=== PATIENT | female | born 1990 ===

== ENCOUNTER 2017-04-29 18:54 | Observation (INO) | payer MEDICAID, OTHER ==
[2017-04-29 18:54] VITALS: BMI 25.7
[2017-04-29] MEDS ORDERED: Sodium Chloride 0.9% 1,000 ML IV ONE (20:16)
[2017-04-29] MEDS ORDERED: Fosphenytoin 1,000 MG in Sodium Chloride 0.9% 50 ML IV STA (20:17)
[2017-04-29 21:01] LABS: BASO % 0.2 % (0.0-2.0); EOS # 0.1 K/uL (0.0-0.7); EOS % 0.4 % (0.0-4.0); HEMATOCRIT 37.8 % (34.0-47.0); LYMPH # 2.3 K/uL (1.0-4.3); LYMPH % 16.8 % (20.0-40.0); MEAN CORPUSCULAR HEMOGLOBIN 21.7 pg (27.0-31.0); MEAN CORPUSCULAR HGB CONC 31.1 g/dL (33.0-37.0); MEAN PLATELET VOLUME 8.3 fL (7.2-11.7); MONO # 0.9 K/uL (0.0-0.8); MONO % 6.8 % (0.0-10.0); RED CELL DISTRIBUTION WIDTH 19.7 % (11.5-14.5)
[2017-04-29 21:02] LABS: WHITE BLOOD COUNT 13.9 K/uL (4.8-10.8)
[2017-04-29 21:03] LABS: MEAN CELL VOLUME 69.8 fL (81.0-99.0)
[2017-04-29 21:05] LABS: RBC URINE 6 /hpf (0-3); URINE BACTERIA OCC (<OCC); URINE BILIRUBIN NEGATIVE (NEGATIVE); URINE COLOR Yellow (YELLOW); URINE GLUCOSE (UA) NORMAL (Normal); URINE KETONE TRACE mg/dL (NEGATIVE); URINE PROTEIN NEGATIVE (NEGATIVE); URINE UROBILINOGEN NORMAL mg/dL (0.2-1.0); WBC URINE 10 /hpf (0-5)
[2017-04-29 21:06] LABS: URINE BLOOD 1+ (NEGATIVE); URINE LEUKOCYTE ESTERASE 1+ Leu/uL (Negative)
[2017-04-29 21:09] LABS: CHLORIDE 103 mmol/L (98-107); SODIUM 137 mmol/L (132-148)
[2017-04-29 21:10] LABS: POTASSIUM 4.3 mmol/L (3.6-5.2)
--- NOTE | 2017-04-29 21:10 | C.PDOC ---
Time Seen by Provider: 04/29/17 20:03 Chief Complaint (Nursing): Seizure Past Medical History Vital Signs: Last Vital Signs Temp 98.6 F 04/29/17 19:40 Pulse 91 H 04/29/17 19:40 Resp 20 04/29/17 19:40 BP 101/67 04/29/17 19:40 Pulse Ox 99 04/29/17 19:40 - Medical History PMH: Seizures - [facility] Procedures APPLICATION OF SPLINT (02/11/15) Family History: States: Unknown Family Hx (no pertinent family history) - Social History Hx Tobacco Use: Yes Hx Alcohol Use: Yes Hx Substance Use: Yes - Immunization History Hx Tetanus Toxoid Vaccination: No Hx Influenza Vaccination: No Hx Pneumococcal Vaccination: No ED Course And Treatment - Laboratory Results Result Diagrams: 04/29/17 20:56 O2 Sat by Pulse Oximetry: 99
--- NOTE | 2017-04-29 21:11 | C.PDOC ---
History Of Present Illness A 26 y/o female with a Hx of 1-2 seizure/year, presents to the ER c/o having 3 seizure today one yesterday. Seizures were witnessed by boyfriend. Pt notes not having any anti-seizure medications. Pt was evaluated by neurologist 2 years ago with a negative workup. Pt reports smoking marijuana extensively and suspects it is because "she has not been smoking for a while". Pt notes mild contusions but denies fever, chills, nausea, vomiting, or any other complaints. Time Seen by Provider: 04/29/17 20:03 Chief Complaint (Nursing): Seizure History Per: Patient, Other (Boyfriend) History/Exam Limitations: no limitations Number Of Seizures: Multiple (3 today and 1 yesterday) Length Of Seizures (Duration): Unknown Quality Of Seizure: Generalized Associated Symptoms: Other (Mild contusions) Severity: Mild Recent travel outside of the [place]: No Additional History Per: Patient Past Medical History Reviewed: Historical Data, Nursing Documentation, Vital Signs Vital Signs: Last Vital Signs Temp 98.6 F 04/29/17 19:40 Pulse 91 H 04/29/17 19:40 Resp 20 04/29/17 19:40 BP 101/67 04/29/17 19:40 Pulse Ox 99 04/29/17 23:01 - Medical History PMH: Seizures - [facility] Procedures APPLICATION OF SPLINT (02/11/15) Family History: States: Unknown Family Hx (no pertinent family history) - Social History Hx Tobacco Use: Yes Hx Alcohol Use: Yes Hx Substance Use: Yes - Immunization History Hx Tetanus Toxoid Vaccination: No Hx Influenza Vaccination: No Hx Pneumococcal Vaccination: No Review Of Systems Except As Marked, All Systems Reviewed And Found Negative. Constitutional: Negative for: Fever, Chills Gastrointestinal: Negative for: Nausea, Vomiting Skin: Positive for: Bruising (Mild) Neurological: Positive for: Seizures (3 today, 1 yesterday) Physical Exam - Physical Exam Appears: Non-toxic, No Acute Distress, Other (Obese) Skin: Warm, Dry Head: Atraumatic, Normacephalic Eye(s): bilateral: Normal Inspection, PERRL, EOMI Chest: Symmetrical Cardiovascular: Rhythm Regular, No Murmur Respiratory: Normal Breath Sounds, No Accessory Muscle Use, No Rales, No Rhonchi , No Wheezing Gastrointestinal/Abdominal: Soft, No Tenderness Neurological/Psych: Oriented x3, Normal Speech, Normal Cognition, Normal Cranial Nerves, Normal Motor, Normal Sensation, Other (No focal deficit) Gait: Steady ED Course And Treatment - Laboratory Results Result Diagrams: 04/29/17 20:56 04/29/17 20:56 Lab Interpretation: Abnormal (+ mild leukocytosis, tox + THC) ECG: Interpreted By Me ECG Rhythm: Sinus Rhythm ECG Interpretation: Normal Rate From EC O2 Sat by Pulse Oximetry: 99 (RA) Pulse Ox Interpretation: Normal - Radiology CXR: Interpreted by Me CXR Interpretation: Yes: No Acute Disease - CT Scan/US CT Head w/o contrast Other Rad Studies (CT/US): Interpreted By Me, Read By Radiologist CT/US Interpretation: EXAM: CT Head Without Intravenous Contrast. CLINICAL HISTORY: 26 years old, female; Signs and symptoms; Other: Seizure; Additional info: Recurrent seizure. TECHNIQUE: Axial computed tomography images of the head/brain without intravenous contrast. This CT exam. was performed using one or more of the following dose reduction techniques: automated exposure. control , adjustment of the mA and/or kV according to patient size, and/or use of iterative. reconstruction technique. COMPARISON: No relevant prior studies available. FINDINGS: Brain: No significant white matter disease. No hemorrhage. No edema. Ventricles: Unremarkable. No ventriculomegaly. Bones/ joints: Unremarkable. No acute fracture. Soft tissues: Unremarkable. Sinuses: Unremarkable as visualized. No acute sinusitis. Mastoid air cells: Minimal fluid within the right mastoid air cells. IMPRESSION: No acute intracranial findings. Mild right mastoid disease. Clinical correlation and followup is recommended as clinically warranted Progress Note: ativan, cerebyx, IVF Reevaluation Time: 22:00 Reassessment Condition: Improved - Physician Consult Information Outcome Of Conversation: 2200: d/w Hospitalist- Dr. Clemens-joan to tele obs Medical Decision Making Medical Decision Making: Impression: 26 y/o female c/o 3 seizures today and 1 yesterday Plans: CT Head, EKG, Blood labs, CXR, Ativan, IV fluids exacerbation of baseline mild seizure disorder of 1-2 szr/yr ? exacerbated by reduction of cannabis abuse. Disposition Doctor Will See Patient In The: Hospital Counseled Patient/Family Regarding: Studies Performed, Diagnosis - Disposition Disposition: HOSPITALIZED Disposition Time: 22:00 Condition: GOOD - Clinical Impression Clinical Impression: Seizure disorder - Scribe Statement The provider has reviewed the documentation as recorded by the Scribe Lulu underwood All medical record entries made by the Scribe were at my direction and personally dictated by me. I have reviewed the chart and agree that the record accurately reflects my personal performance of the history, physical exam, medical decision making, and the department course for this patient. I have also personally directed, reviewed, and agree with the discharge instructions and disposition.
[2017-04-29 21:12] LABS: ALB/GLOB RATIO 1.4 (1.0-2.1); ALKALINE PHOSPHATASE 71 U/L (38-126); ALT/SGPT 27 U/L (9-52); AST/SGOT 24 U/L (14-36); BILIRUBIN,TOTAL 0.7 mg/dL (0.2-1.3); BLOOD UREA NITROGEN 11 mg/dL (7-17); CALCIUM 9.1 mg/dl (8.6-10.4); CARBON DIOXIDE 23 mmol/L (22-30); GFR AFRICAN-AMERICAN > 60; GLUCOSE,RANDOM 82 mg/dL (65-105); TOTAL PROTEIN 7.5 g/dL (6.3-8.3)
[2017-04-29 21:13] LABS: ALCOHOL SERUM < 10 mg/dl (0-10)
--- NOTE | 2017-04-30 00:03 | CP.PCM.HP ---
<Grant Munson - Last Filed: 04/30/17 06:03> History of Present Illness - History of Present Illness History of Present Illness: CC: Seizures 26 F with PMH of seizures (1-2 per year) presents to [facility] ED with complaint of multiple seizures. Seizures were witnessed by boyfriend. Boyfriend was besides and provided most of the history. Patient had 1 seizure yesterday in the late morning/early aternoon. Patient was standing in door way and began to mumble. Her boyfriend got up and laid her on the ground. He described it as tonic-clonic seizure with urinary incontinence and post ictal state. Earlier today, patient had 3 seizures with similar presentation within a few hours. The last one occurred around 530 pm. Patient has a bruise on lip and LLE but denies tongue or mouth lesions. Patient states the she has had seizures in the past. Her first one was at age 4 then did not hav any until age 21. Since age 21, patient reports having 1-2 seizures per year. Patient denies ever taking any anti-seizure medications. She was evaluated by neurologist 2 years ago with a negative workup. She also reports smoking marijuana daily since age 18. Patient suspects seizures occur because "she has not been smoking for a while". Patient did not smoke marijuana for about a day and a half. Denies fever/chills, cp, sob , abd pain, nausea/vomiting, diarrhea, constipation, or any other complaints. PMH: History of seizures Meds: Denies Allergy: NKDA PSH: Denies Hosp: Denies FH: Denies Social: lives with boyfriend, smokes 2 cigarettes daily, smokes 1/8 of an oz of marijuana per day, quit drinking ETOH 3 years ago - use to drink a fifth of vodka per day Present on Admission - Present on Admission Any Indicators Present on Admission: No History of DVT/PE: No History of Uncontrolled Diabetes: No Urinary Catheter: No Decubitus Ulcer Present: No Review of Systems - Constitutional Constitutional: Headache, Weakness. absent: Chills, Fever - EENT Eyes: Photophobia. absent: Blind Spots, Blurred Vision, Loss of Peripheral Vision, Spots in Vision Ears: absent: Ear Discharge, Dizziness Nose/Mouth/Throat: absent: Nasal Congestion, Nasal Discharge, Sore Throat, Neck Mass - Breasts Breasts: absent: Mass, Pain, Swelling - Cardiovascular Cardiovascular: absent: Chest Pain, Chest Pain at Rest, Chest Pain with Activity , Irregular Heart Rhythm, Palpitations - Respiratory Respiratory: absent: Cough, Dyspnea, Hemoptysis, Dyspnea on Exertion, Wheezing - Gastrointestinal Gastrointestinal: absent: Abdominal Pain, Constipation, Diarrhea, Fecal Incontinence, Nausea, Vomiting - Genitourinary Genitourinary: Urinary Incontinence. absent: Change in Urinary Stream, Difficulty Urinating, Dysuria, Urinary Frequency, Urinary Hesitance, Urinary Urgency - Musculoskeletal Musculoskeletal: Arthralgias. absent: Numbness, Stiffness, Tingling - Integumentary Integumentary: New Lesions, Rash, Unusual Bruising. absent: Changing Lesions, Skin Pain, Skin Ulcer, Sores, Wounds - Neurological Neurological: Confusion (post ictal state), Convulsions, Headaches, Memory Loss , Weakness. absent: Dizziness, Syncope, Tingling, Tremor, Vertigo - Psychiatric Psychiatric: absent: Anxiety, Depression, Homicidal Ideation, Suicidal Ideation - Endocrine Endocrine: absent: Fatigue, Palpitations, Polydipsia, Polyphagia, Polyuria - Hematologic/Lymphatic Hematologic: absent: Easy Bleeding, Easy Bruising, Lymphadenopathy Past Patient History - Infectious Disease Hx of Infectious Diseases: None - Past Social History Smoking Status: Light Smoker < 10 Cigarettes Daily - NEUROLOGICAL Hx Seizures: Yes - PSYCHIATRIC Hx Substance Use: Yes - SURGICAL HISTORY Hx Surgeries: No - ANESTHESIA Hx Anesthesia: No Meds Allergies/Adverse Reactions: Allergies Allergy/AdvReac Type Severity Reaction Status Date / Time No Known Allergies Allergy Verified 04/29/17 19:46 Physical Exam - Constitutional Appears: No Acute Distress - Head Exam Head Exam: ATRAUMATIC, NORMOCEPHALIC - Eye Exam Eye Exam: EOMI, Normal appearance Pupil Exam: PERRL - ENT Exam ENT Exam: Mucous Membranes Moist - Neck Exam Neck exam: Positive for: Normal Inspection - Respiratory Exam Respiratory Exam: Clear to Auscultation Bilateral, NORMAL BREATHING PATTERN - Cardiovascular Exam Cardiovascular Exam: Irregular Rhythm (sinus arrythmia), +S1, +S2. absent: Diastolic murmur, Gallop, Rubs, Systolic Murmur Additional comments: regular rate at 78 bpm - GI/Abdominal Exam GI & Abdominal Exam: Normal Bowel Sounds, Soft. absent: Distended, Firm, Guarding, Rebound, Rigid, Tenderness - Extremities Exam Extremities exam: Positive for: normal capillary refill, pedal pulses present. Negative for: calf tenderness, pedal edema - Back Exam Back exam: absent: CVA tenderness (L), CVA tenderness (R) - Neurological Exam Neurological exam: Alert, CN II-XII Intact, Oriented x3 - Psychiatric Exam Psychiatric exam: Normal Affect, Normal Mood - Skin Skin Exam: Dry, Intact, Warm Additional comments: maculopapular rash on left side of face and left supraclavicular region contusion on upper lip and LLE Results - Vital Signs Recent Vital Signs: Last Vital Signs Temp 98.6 F 04/29/17 19:40 Pulse 91 H 04/29/17 19:40 Resp 20 04/29/17 19:40 BP 101/67 04/29/17 19:40 Pulse Ox 99 04/29/17 23:23 - Labs Result Diagrams: 04/29/17 20:56 04/29/17 20:56 Assessment & Plan - Assessment and Plan (Free Text) Plan: 1. Seizures Telemetry CT head CXR EEG Neuro consult, Dr. Marx, help appreciated Regular diet Fosphenytoin 1000 mg was given by ED Aspiration precautions Seizure precautions Fall risk protocol Neurochecks Vitals Q4H 2. Prophylactic Measures Protonix 40 mg PO daily Zofran 4 mg IVP Q6H PRN SCDs <Tony Clemens P - Last Filed: 05/03/17 23:22> Results - Vital Signs Recent Vital Signs: Last Vital Signs Temp 98.6 F 04/30/17 15:36 Pulse 90 04/30/17 15:36 Resp 18 04/30/17 15:36 BP 122/78 04/30/17 15:36 Pulse Ox 96 04/30/17 15:36 - Labs Result Diagrams: 04/30/17 08:37 04/30/17 08:37 Attending/Attestation - Attestation I have personally seen and examined this patient.: Yes I have fully participated in the care of the patient.: Yes I have reviewed all pertinent clinical information: Yes
--- NOTE | 2017-04-30 07:56 | CT ---
PROCEDURE: CT HEAD WITHOUT CONTRAST. HISTORY: recurrent seizure COMPARISON: None available. TECHNIQUE: Axial computed tomography images were obtained through the head/brain without intravenous contrast. Radiation dose: Total exam DLP = 838 mGy-cm. This CT exam was performed using one or more of the following dose reduction techniques: Automated exposure control, adjustment of the mA and/or kV according to patient size, and/or use of iterative reconstruction technique. FINDINGS: HEMORRHAGE: No intracranial hemorrhage. BRAIN: No mass effect or edema. No atrophy or chronic microvascular ischemic changes. VENTRICLES: Unremarkable. No hydrocephalus. CALVARIUM: Unremarkable. PARANASAL SINUSES: Unremarkable as visualized. No significant inflammatory changes. MASTOID AIR CELLS: Small amount of opacification within the right mastoid air cells. OTHER FINDINGS: None. IMPRESSION: No acute intracranial abnormality. Small amount of opacification within the right mastoid air cells. Clinical correlation. If focal neurologic deficit persists, consider MRI. These findings were preliminarily reported at 10:24 p.m. on 04/29/[address] Carli Wallace from [facility].
[2017-04-30 08:49] LABS: BASO % 0.1 % (0.0-2.0); EOS % 0.3 % (0.0-4.0); HEMATOCRIT 35.7 % (34.0-47.0); LYMPH # 2.6 K/uL (1.0-4.3); LYMPH % 29.5 % (20.0-40.0); MEAN CORPUSCULAR HGB CONC 31.4 g/dL (33.0-37.0); MEAN PLATELET VOLUME 8.4 fL (7.2-11.7); MONO # 0.6 K/uL (0.0-0.8); MONO % 6.4 % (0.0-10.0); RED CELL DISTRIBUTION WIDTH 19.3 % (11.5-14.5); WHITE BLOOD COUNT 8.9 K/uL (4.8-10.8)
[2017-04-30 08:53] LABS: INR 1.1
[2017-04-30 08:54] LABS: CHLORIDE 103 mmol/L (98-107); SODIUM 140 mmol/L (132-148)
[2017-04-30 08:55] LABS: POTASSIUM 3.7 mmol/L (3.6-5.2)
[2017-04-30 08:57] LABS: ALB/GLOB RATIO 1.4 (1.0-2.1); ALKALINE PHOSPHATASE 67 U/L (38-126); ALT/SGPT 24 U/L (9-52); AST/SGOT 23 U/L (14-36); BILIRUBIN,TOTAL 0.8 mg/dL (0.2-1.3); BLOOD UREA NITROGEN 8 mg/dL (7-17); CARBON DIOXIDE 26 mmol/L (22-30); GFR AFRICAN-AMERICAN > 60; TOTAL PROTEIN 6.8 g/dL (6.3-8.3)
[2017-04-30 08:58] LABS: CALCIUM 8.5 mg/dl (8.6-10.4); GLUCOSE,RANDOM 88 mg/dL (65-105)
--- NOTE | 2017-04-30 09:12 | RAD ---
PROCEDURE: CHEST RADIOGRAPH, 1 VIEW HISTORY: Detox/Psy COMPARISON: None available. FINDINGS: LUNGS: Clear. PLEURA: No pneumothorax or pleural fluid seen. CARDIOVASCULAR: Normal. OSSEOUS STRUCTURES: No significant abnormalities. VISUALIZED UPPER ABDOMEN: Normal. OTHER FINDINGS: None. IMPRESSION: No active disease.
[2017-04-30] MEDS ORDERED: Pantoprazole 40 mg EC Tab PO SCH (10:00)
[2017-04-30] MEDS ORDERED: Sodium Chloride 0.9% 1,000 ML IV SCH (13:00)
--- NOTE | 2017-04-30 13:05 | CP.PCM.PN ---
<Eloina Rosenthal - Last Filed: 04/30/17 13:20> Subjective - Date & Time of Evaluation Date of Evaluation: 04/30/17 Time of Evaluation: 07:00 - Subjective Subjective: Patient seen and examined at bedside this morning. She has not had another seizure since her admission. She was awake and oriented. She has no current complaints. Denied chest pain, palpitations, headache, changes in vision, N/V, abd pain, weakness or swelling in the extremities. She states that she bit the side of her cheek and has a small braise both from the seizure the had the day prior. Objective - Vital Signs/Intake and Output Vital Signs (last 24 hours): Temp Pulse Resp BP Pulse Ox 98.3 F 85 22 107/56 L 99 04/30/17 08:23 04/30/17 08:23 04/30/17 08:23 04/30/17 08:23 04/30/17 08:23 Intake and Output: 04/30/17 04/30/17 06:59 18:59 Intake Total 120 Balance 120 - Medications Medications: Current Medications Famotidine (Pepcid) 20 mg PO BID LENKA Sodium Chloride (Sodium Chloride 0.9%) 1,000 mls @ 100 mls/hr IV .Q10H LENKA Levetiracetam (Keppra) 500 mg PO BID LENKA Lorazepam (Ativan) 0.5 mg IVP Q6 PRN PRN Reason: Seizure activity Ondansetron HCl (Zofran Inj) 4 mg IVP Q6 PRN PRN Reason: Nausea/Vomiting - Labs Labs: 04/30/17 08:37 04/30/17 08:37 PT 12.5 SECONDS (9.7-12.2) H 04/30/17 08:37 INR 1.1 04/30/17 08:37 APTT 28 SECONDS (21-34) 04/30/17 08:37 - Constitutional Appears: Non-toxic, No Acute Distress - Head Exam Head Exam: ATRAUMATIC, NORMAL INSPECTION - Eye Exam Eye Exam: EOMI, Normal appearance, PERRL Pupil Exam: NORMAL ACCOMODATION - ENT Exam ENT Exam: Mucous Membranes Dry Additional comments: bit mitesh on side of cheek, inside - Respiratory Exam Respiratory Exam: Clear to Ausculation Bilateral, NORMAL BREATHING PATTERN. absent: Accessory Muscle Use, Rales, Rhonchi, Wheezes, Respiratory Distress - Cardiovascular Exam Cardiovascular Exam: REGULAR RHYTHM, +S1, +S2 - GI/Abdominal Exam GI & Abdominal Exam: Soft, Normal Bowel Sounds. absent: Distended, Firm, Guarding, Tenderness - Extremities Exam Extremities Exam: Normal Inspection. absent: Calf Tenderness, Pedal Edema - Back Exam Back Exam: NORMAL INSPECTION. absent: CVA tenderness (L), CVA tenderness (R), paraspinal tenderness - Neurological Exam Neurological Exam: Alert, Awake, CN II-XII Intact, Oriented x3 Neuro motor strength exam: Left Upper Extremity: 5, Right Upper Extremity: 5, Left Lower Extremity: 5, Right Lower Extremity: 5 - Psychiatric Exam Psychiatric exam: Normal Affect, Normal Mood - Skin Skin Exam: Dry, Intact, Normal Color, Warm Assessment and Plan - Assessment and Plan (Free Text) Assessment: Seizures Neuro consult, Dr. Marx, tolu appreciated - f/u recs Start Keppra 500 mg PO BID telemetry monitor Ativan 0.5 mg IVP prn seizure activity CXR - NSR, no acute changes Fosphenytoin 1000 mg was given by ED Aspiration precautions Seizure precautions Fall risk protocol Neurochecks Vitals Q4H Head CT negative so acute bleed or pathology f/u Brain MRI f/u EEG f/u am labs Prophylactic Measures Pepcid 20 mg PO BID Zofran 4 mg IVP Q6H PRN SCDs Patient is ambulating NS at 100 cc/hour Regular diet <Antonio Cook - Last Filed: 06/05/17 12:08> Objective - Vital Signs/Intake and Output Vital Signs (last 24 hours): Temp Pulse Resp BP Pulse Ox 98.6 F 90 18 122/78 96 04/30/17 15:36 04/30/17 15:36 04/30/17 15:36 04/30/17 15:36 04/30/17 15:36 - Labs Labs: 04/30/17 08:37 04/30/17 08:37 PT 12.5 SECONDS (9.7-12.2) H 04/30/17 08:37 INR 1.1 04/30/17 08:37 APTT 28 SECONDS (21-34) 04/30/17 08:37 Attending/Attestation - Attestation I have personally seen and examined this patient.: Yes I have fully participated in the care of the patient.: Yes I have reviewed all pertinent clinical information, including history, physical exam and plan: Yes Notes (Text): Patient Seen and examined with the resident. Agree with the resident's evaluation, assessment and plan. Seizures workup up and meds started cont management per neuro
--- NOTE | 2017-04-30 13:37 | CON ---
DATE: 04/30/2017 REASON FOR CONSULTATION: Seizures. HISTORY OF PRESENT ILLNESS: The patient is a 26-year-old female who was admitted after she had 3 sei zures yesterday. Apparently, about 2 days ago she had an argument with her boyfriend and after that she had 1 seizure lasting briefly. Then yesterday again, patient had 3 seizures which was witnessed by the boyfriend, described as, "she was stiffened and then started shaking arms or legs." She was u nconscious. The patient herself does not remember what happened. She did not have any tongue biting . She had urinary incontinence once. The patient apparently had a seizure when she was 4 years old and after that she did not have any seizures until she was 21 years old. She was evaluated by a neur ologist about 2 years ago and according to her, her workup was negative and she was never started on any medication. At the moment, she feels fine except an achy sensation in the whole body. REVIEW OF SYSTEMS: Denies any headache, dizziness, chest pain, shortness of breath, abdominal pain, constipation, diarrhea, dysuria, pyuria, cough or sputum production. PAST MEDICAL HISTORY: As above. MEDICATIONS AT HOME: None. ALLERGIES: No known drug allergies. SOCIAL HISTORY: She does smoke cigarettes. Does not drink alcohol or use illicit drugs. FAMILY HISTORY: Noncontributory to the case. PHYSICAL EXAMINATION: GENERAL: The patient is a young, pleasant female lying on the bed, in no acute distress. VITAL SIGNS: Her blood pressure is 107/56, heart rate is 85 per minute, breathing at a rate of 16 pe r minute, temperature is 98.3 degrees Fahrenheit. HEENT: Normocephalic, atraumatic. NECK: Supple. There are no carotid bruits. LUNGS: Clear. CARDIOVASCULAR: S1, S2 audible. No murmurs. ABDOMEN: Soft and nontender with bowel sounds present. NEUROLOGIC EXAMINATION: MENTAL STATUS: The patient is awake and alert, oriented to time, place, and person. Speech is fluen t. Naming and repetition is normal. Memory and cognition are intact. CRANIAL NERVES: Pupils are 4 mm bilaterally reactive to light. Visual wilburn are full. Extraocular movements are intact. There is no facial asymmetry. Palate is upgoing bilaterally and tongue is mi dline. MOTOR: Tone is normal. Power is 5/5 bilaterally in all extremities. Reflexes +2 and symmetrical. Plantars downgoing bilaterally. CEREBELLAR: [id number] shows no dysmetria. GAIT: Narrow based. LABORATORIES: Reviewed, shows WBC of 8.9, hemoglobin of 11.2, hematocrit 35.7 and platelets of 341. Sodium is 140, potassium 3.7, chloride , carbon dioxide 26, BUN of 8, creatinine 0.7, glucose o f 88. Urine toxicology is positive for cannabinoids. She had a CT scan of the head done, which was negative for any acute intracranial pathology. IMPRESSION: Recurrent seizures with history of seizure in the past. RECOMMENDATIONS: 1. The patient to have MRI of the brain without contrast. 2. The patient also to have an electroencephalogram. 3. The patient was given phenytoin in the Emergency Room. Currently, the patient is started on Kepp ra 500 mg twice a day, which is to be continued. 4. The patient also to have an electroencephalogram. 5. If patient remains stable and has no further seizures, then she may be discharged with outpatient followup. Thank you for the opportunity to participate in the care of this patient. Tran Marx MD cc: [id number] TT: 04/30/2017 13:37:14 Confirmation # [id number] Dictation # [id number] angela
[2017-04-30 15:39] VITALS: BP 122/78; PULSE 90; RESP 18; TEMP 98.6; O2SAT 96
--- NOTE | 2017-04-30 16:13 | MRI ---
PROCEDURE: MRI BRAIN WITHOUT CONTRAST HISTORY: seizure COMPARISON: Comparison is made to the previous CT dated 04/29/2017 and 07/08/2012 TECHNIQUE: Multiplanar, multisequence MR images of the brain were obtained without intravenous contrast enhancement. FINDINGS: HEMORRHAGE: None DWI: No evidence of an acute or early subacute infarction. BRAIN PARENCHYMA: No mass effect or edema. No atrophy or chronic microvascular ischemic changes. VENTRICLES: Unremarkable. No hydrocephalus. CRANIUM: Unremarkable. ORBITS: Grossly unremarkable. PARANASAL SINUSES/MASTOIDS: Clear VASCULAR SYSTEM: Skull base flow voids intact. OTHER FINDINGS: None. IMPRESSION: Unremarkable non contrast enhanced MRI of the brain.
--- NOTE | 2017-04-30 17:48 | EEG ---
DATE: 04/30/2017 INTRODUCTION: This is a digitally recorded EEG monitoring using standard EEG montages. BACKGROUND RHYTHM: The EEG shows a background activity of 9-10 Hz alpha activity in parietooccipital region. The EEG activity is bilaterally symmetrical and synchronous. There is attenuation of the b ackground activity on eye opening. A small amount of myogenic artifact noticed in this EEG recording . ABNORMAL POTENTIALS: No spikes, sharp waves or focal slowing was seen. PHOTIC STIMULATION AND HYPERVENTILATION: Photic stimulation did not reveal any abnormality. Hyperve ntilation was not performed. IMPRESSION: Normal EEG. No epileptiform activity seen in this EEG recording. Tran Marx MD cc: [id number] TT: 04/30/2017 17:48:17 Confirmation # [id number] Dictation # [id number] sujey
--- NOTE | 2017-05-04 21:21 | CARD ---
APPROVED REPORT EKG Measurement Heart [id number] <Conclusion> Normal sinus rhythm Normal ECG
== END 2017-04-30 17:10 | disposition left against medical advice (07) ==
LOC: C.ER 18:54 → C.6T 22:56
PROVIDERS: ADMIT Internal Medicine; ATTEND Internal Medicine
DX: G40.89 Other seizures (principal); F12.10 Cannabis abuse, uncomplicated; F17.210 Nicotine dependence, cigarettes, uncomplicated
CPT/HCPCS: 36415; 70450; 70551; 71010; 80053; 81001; 82948; 84703; 85025; 85610; 85730; 93005; 95812; 99285; G0378; G0480; J7040; Q2009

== ENCOUNTER 2017-06-04 19:08 | Emergency (ER) | payer OTHER ==
[2017-06-04 19:08] VITALS: BMI 25.7
[2017-06-04 19:30] VITALS: O2SAT 100
--- NOTE | 2017-06-04 19:41 | C.PDOC ---
History Of Present Illness Patient presents to the ER after having a seizure witnessed by her boyfriend. Patient states she missed a couple doses of her seizure medication because she was in AC. Denies fever or chills. Time Seen by Provider: 06/04/17 19:41 Chief Complaint (Nursing): Seizure History Per: Patient History/Exam Limitations: no limitations Recent Seizure Activity Began: Just Before Arrival Number Of Seizures: One Length Of Seizures (Duration): Seconds Quality Of Seizure: Generalized Precipitating Factor(s): Missed Dose Of Anti-seizure Medication Associated Symptoms: Other (None) Severity: Mild Pain Scale Rating Of: 2 Recent travel outside of the [place]: No Past Medical History Reviewed: Historical Data, Nursing Documentation, Vital Signs Vital Signs: Last Vital Signs Temp 97.5 F L 06/04/17 19:30 Pulse 86 06/04/17 19:30 Resp 20 06/04/17 19:30 BP 120/74 06/04/17 19:30 Pulse Ox 100 06/04/17 21:23 - Medical History PMH: No Chronic Diseases, Seizures Denies: Chronic Kidney Disease Surgical History: No Surg Hx - [facility] Procedures APPLICATION OF SPLINT (02/11/15) Family History: States: Unknown Family Hx (no pertinent family history) - Social History Hx Tobacco Use: Yes Hx Alcohol Use: Yes Hx Substance Use: Yes (smokes marijuana) - Immunization History Hx Tetanus Toxoid Vaccination: No Hx Influenza Vaccination: No Hx Pneumococcal Vaccination: No Review Of Systems Constitutional: Negative for: Fever, Chills Neurological: Positive for: Seizures Physical Exam - Physical Exam Appears: Non-toxic, No Acute Distress, Other (Awake, Alert) Skin: Warm, Dry Ear(s): Bilateral: Normal Nose: Tenderness (Mildly), No Septal Hematoma Oral Mucosa: Moist Lips: Laceration (1 1/2 cm to upper lip) Chest: Symmetrical, No Tenderness Cardiovascular: Rhythm Regular, No Murmur Respiratory: No Rales, No Rhonchi, No Wheezing Gastrointestinal/Abdominal: Soft, No Tenderness Neurological/Psych: Oriented x3 ED Course And Treatment O2 Sat by Pulse Oximetry: 100 (Room air) Pulse Ox Interpretation: Normal - CT Scan/US CT Orbits & Facials Other Rad Studies (CT/US): Read By Radiologist, Radiology Report Reviewed CT/US Interpretation: EXAM: CT Orbits Without Intravenous Contrast. CLINICAL HISTORY: 26 years old, female; Injury or trauma and signs and symptoms; Fall; Initial encounter; Laceration;. Nose; Without residual foreign body; Nasal congestion. TECHNIQUE: Axial computed tomography images of the orbits without intravenous contrast. This CT exam was. performed using one or more of the following dose reduction techniques: automated exposure. control, adjustment of the mA and/or kV according to patient size, and/or use of iterative. reconstruction technique. Coronal and sagittal reformatted images were created and reviewed. EXAM DATE/TIME: Exam ordered 06/04/2017 7:45 PM. COMPARISON: CT - HEAD W/O CONTRAST 04/29/2017 9:46:23 PM. FINDINGS: Orbits: Unremarkable. Sinuses: Mucosal thickening is noted in the left the sphenoid sinus. The coastal thickening is noted. in the left maxillary sinus. There is mucosal thickening noted in the left sphenoid sinus. No air-fluid. levels. Mastoid air cells: There is partial soft tissue opacification noted of the right mastoid air cells. Bones/joints: There is a fracture of the left and right nasal bone. There is a leftward deviation of the. left nasal bone. Soft tissues: Unremarkable. IMPRESSION: 1. Fracture of the left and right nasal bones. 2. Left maxillary and ethmoid chronic sinusitis. 2. Right mastoiditis. Progress Note: CT of orbits and facials ordered. Motrin administered. Patient refused blood work because she states she knows the cause of her seizure. Reevaluation Time: 21:30 Reassessment Condition: Improved Laceration - Laceration Repair Right upper lip Wound Length (In cm): 1 1/2 Description Of Wound: Linear Wound Cleansed With: Sterile Saline Anesthesia: Lidocaine 1%, With Epi Wound Examination: Irrigated With Saline Wound Closure: Suture (3) Suture Technique And Material Used: Prolene (6-0) Wound Complexity: Simple Right upper lip(Buccal Aspect) Wound Length (In cm): 2 Description Of Wound: Linear Wound Cleansed With: Sterile Saline Anesthesia: Lidocaine 1%, With Epi Wound Examination: Irrigated With Saline Wound Closure: Suture (3 4-0 absorbable) Wound Complexity: Simple Medical Decision Making Medical Decision Making: Upon provider reevaluation patient is feeling better, is medically stable, and requires no further treatment in the ED at this time. Patient will be discharged home with Rx for keflex . Counseling was provided and all questions were answered regarding diagnosis and need for follow up with [facility]. There is agreement to discharge plan. Return if symptoms persist or worsen. Disposition Counseled Patient/Family Regarding: Studies Performed, Diagnosis - Disposition Referrals: Shaik Moses MD [Staff Provider] - Disposition: HOME/ ROUTINE Disposition Time: 19:41 Condition: FAIR Additional Instructions: Please return if symptoms recur. Please take your seizure medication. Have a wound check in 2 days Prescriptions: Cephalexin [Keflex] 500 mg PO TID #21 capsule Instructions: Epilepsy (DC), Nasal Fracture (ED), Facial Laceration (ED), Care For Your Absorbable Stitches (ED) - Clinical Impression Clinical Impression: Seizure, Fracture of nasal bone, Laceration of lip - Scribe Statement The provider has reviewed the documentation as recorded by the Scribe Diego Couch All medical record entries made by the Scribe were at my direction and personally dictated by me. I have reviewed the chart and agree that the record accurately reflects my personal performance of the history, physical exam, medical decision making, and the department course for this patient. I have also personally directed, reviewed, and agree with the discharge instructions and disposition.
[2017-06-04] MEDS ORDERED: Lidocaine 2% w Epi 1:100,000 Inj IJ ONE (20:38)
--- NOTE | 2017-06-04 21:01 | CT ---
EXAM: CT Orbits Without Intravenous Contrast CLINICAL HISTORY: 26 years old, female; Injury or trauma and signs and symptoms; Fall; Initial encounter; Laceration; Nose; Without residual foreign body; Nasal congestion TECHNIQUE: Axial computed tomography images of the orbits without intravenous contrast. This CT exam was performed using one or more of the following dose reduction techniques: automated exposure control, adjustment of the mA and/or kV according to patient size, and/or use of iterative reconstruction technique. Coronal and sagittal reformatted images were created and reviewed. EXAM DATE/TIME: Exam ordered 06/04/2017 7:45 PM COMPARISON: CT - HEAD W/O CONTRAST 04/29/2017 9:46:23 PM FINDINGS: Orbits: Unremarkable. Sinuses: Mucosal thickening is noted in the left the sphenoid sinus. The coastal thickening is noted in the left maxillary sinus. There is mucosal thickening noted in the left sphenoid sinus. No air-fluid levels. Mastoid air cells: There is partial soft tissue opacification noted of the right mastoid air cells. Bones/joints: There is a fracture of the left and right nasal bone. There is a leftward deviation of the left nasal bone. Soft tissues: Unremarkable. IMPRESSION: 1. Fracture of the left and right nasal bones 2. Left maxillary and ethmoid chronic sinusitis. 2. Right mastoiditis. .
[2017-06-04 21:57] VITALS: BP 110/77; PULSE 89; RESP 18; TEMP 97.8
== END 2017-06-04 21:59 | disposition home or self-care (01) ==
LOC: C.ER 19:08
DX: S01.511A Laceration without foreign body of lip, initial encounter (principal); S02.2XXA Fracture of nasal bones, initial encounter for closed fracture; W18.39XA Other fall on same level, initial encounter; Y92.009 Unspecified place in unspecified non-institutional (private) residence as the place of occurrence of the external cause; G40.909 Epilepsy, unspecified, not intractable, without status epilepticus

== ENCOUNTER 2017-06-07 13:04 | Emergency (ER) | payer OTHER ==
[2017-06-07 13:04] VITALS: BMI 25.7
[2017-06-07 13:11] VITALS: BP 123/88; PULSE 90; RESP 16; TEMP 98.3; O2SAT 98
--- NOTE | 2017-06-07 13:26 | C.PDOC ---
History Of Present Illness 26 year old female presents to the ED seeking evaluation of a wound. Patient states she had suture repair on June 04 and has been compliant with antibiotics. She notes some swelling to the wound area and is currently on a soft diet. Patient denies fever or erythema. Patient is also requesting medicine refills and has not followed up in the clinic. Time Seen by Provider: 06/07/17 13:13 Chief Complaint (Nursing): Wound Check History Per: Patient History/Exam Limitations: no limitations Onset/Duration Of Symptoms: Days Ago (wound repair on June 04 ) Current Symptoms Are (Timing): Better (some swelling, no erythema, wound check) Quality Of Symptoms: Swollen (some swelling ) Recent travel outside of the [place]: No Past Medical History Reviewed: Historical Data, Nursing Documentation, Vital Signs Vital Signs: Last Vital Signs Temp 98.3 F 06/07/17 13:08 Pulse 90 06/07/17 13:08 Resp 16 06/07/17 13:08 BP 123/88 06/07/17 13:08 Pulse Ox 98 06/07/17 14:48 - Medical History PMH: Seizures - [facility] Procedures APPLICATION OF SPLINT (02/11/15) Family History: States: Unknown Family Hx (no pertinent family history) - Social History Hx Tobacco Use: Yes Hx Alcohol Use: No Hx Substance Use: Yes - Immunization History Hx Tetanus Toxoid Vaccination: No Hx Influenza Vaccination: No Hx Pneumococcal Vaccination: No Review Of Systems Constitutional: Negative for: Fever, Chills Cardiovascular: Negative for: Chest Pain Respiratory: Negative for: Shortness of Breath Neurological: Negative for: Headache Physical Exam - Physical Exam Appears: Non-toxic, No Acute Distress Skin: Warm, Dry Head: Other (some facial hematomas with minimal localized tenderness. No erythema, sutures in place. ) Lips: Swelling (upper lip swelling) ED Course And Treatment O2 Sat by Pulse Oximetry: 98 (room air ) Disposition Counseled Patient/Family Regarding: Diagnosis, Need For Followup - Disposition Disposition: HOME/ ROUTINE Disposition Time: 13:24 Condition: GOOD Prescriptions: levETIRAcetam [Keppra] 500 mg PO BID #30 tab Instructions: Acute Wound Care (ED) - Clinical Impression Clinical Impression: Visit for wound check - Scribe Statement The provider has reviewed the documentation as recorded by the Scribe Daylin Cody All medical record entries made by the Scribe were at my direction and personally dictated by me. I have reviewed the chart and agree that the record accurately reflects my personal performance of the history, physical exam, medical decision making, and the department course for this patient. I have also personally directed, reviewed, and agree with the discharge instructions and disposition.
== END 2017-06-07 13:32 | disposition home or self-care (01) ==
LOC: C.ER 13:04
DX: Z48.00 Encounter for change or removal of nonsurgical wound dressing (principal)

== ENCOUNTER 2017-06-13 09:22 | Emergency (ER) | payer OTHER, SELFPAY ==
[2017-06-13 09:28] VITALS: BMI 27.4
[2017-06-13 09:35] VITALS: BP 114/77; PULSE 87; RESP 18; TEMP 98.2; O2SAT 99
--- NOTE | 2017-06-13 09:52 | C.PDOC ---
History Of Present Illness 26 yo female, here of suture removal from lip placed 10 days ago. no fevers, discharge, or other complaints Time Seen by Provider: 06/13/17 09:29 Chief Complaint (Nursing): Suture/Staple Removal Past Medical History Reviewed: Historical Data, Nursing Documentation, Vital Signs Vital Signs: Last Vital Signs Temp 98.2 F 06/13/17 09:34 Pulse 87 06/13/17 09:34 Resp 18 06/13/17 09:34 BP 114/77 06/13/17 09:34 Pulse Ox 99 06/13/17 09:34 - Medical History PMH: Seizures Denies: Chronic Kidney Disease - [facility] Procedures APPLICATION OF SPLINT (02/11/15) Family History: States: Unknown Family Hx (no pertinent family history) - Social History Hx Tobacco Use: Yes Hx Alcohol Use: No Hx Substance Use: Yes - Immunization History Hx Tetanus Toxoid Vaccination: No Hx Influenza Vaccination: No Hx Pneumococcal Vaccination: No Review Of Systems Except As Marked, All Systems Reviewed And Found Negative. ENT: Positive for: Other (laceration to lip) Physical Exam - Physical Exam Appears: Well, No Acute Distress Skin: Normal Color, Warm, Dry Head: Atraumatic, Normacephalic, Laceration (lip lac c/d/i) Eye(s): bilateral: Normal Inspection, PERRL, EOMI Nose: Normal Throat: Normal Neck: Normal Cardiovascular: Rhythm Regular Respiratory: Normal Breath Sounds Gastrointestinal/Abdominal: Normal Exam Back: Normal Inspection Extremity: Normal ROM ED Course And Treatment O2 Sat by Pulse Oximetry: 99 Medical Decision Making Medical Decision Making: sutures removed Disposition - Disposition Disposition: HOME/ ROUTINE Disposition Time: 09:37 Condition: STABLE Additional Instructions: please follow up with your doctor. return to er with worsneing symptoms or concenr. - Clinical Impression Clinical Impression: Removal of suture
== END 2017-06-13 09:40 | disposition home or self-care (01) ==
LOC: C.ER 09:22
DX: Z48.02 Encounter for removal of sutures (principal)

== ENCOUNTER 2017-06-26 14:43 | Emergency (ER) | payer OTHER ==
[2017-06-26 14:43] VITALS: BMI 27.4
[2017-06-26 15:09] VITALS: BP 117/76; PULSE 78; RESP 20; TEMP 98.4; O2SAT 100
--- NOTE | 2017-06-26 15:26 | C.PDOC ---
History Of Present Illness 27 y/o female presents to ED requesting medication refill of Keppra. Pt seen in ED multiple times the same, last visit 06/07/17. Pt pending appointment with PMD in 2 weeks. Pt has no physical complaints at this time. REQUESTING REFILL KEPPRA. MULTIPLE PRIOR ER VISITS FOR SAME, LAST SEEN 06/07/17 FOR SAME EXAM NEG Time Seen by Provider: 06/26/17 15:21 Chief Complaint (Nursing): Med Refill History Per: Patient History/Exam Limitations: no limitations Severity: None Reports Recently: Seen In ED Recent travel outside of the [place]: No Past Medical History Reviewed: Historical Data, Nursing Documentation, Vital Signs Vital Signs: Last Vital Signs Temp 98.4 F 06/26/17 15:06 Pulse 78 06/26/17 15:06 Resp 20 06/26/17 15:06 BP 117/76 06/26/17 15:06 Pulse Ox 100 06/26/17 15:27 - Medical History PMH: Seizures - [facility] Procedures APPLICATION OF SPLINT (02/11/15) Family History: States: Unknown Family Hx (no pertinent family history) - Social History Hx Tobacco Use: Yes Hx Alcohol Use: No Hx Substance Use: Yes (weed) - Immunization History Hx Tetanus Toxoid Vaccination: No Hx Influenza Vaccination: No Hx Pneumococcal Vaccination: No Review Of Systems Except As Marked, All Systems Reviewed And Found Negative. Physical Exam - Physical Exam Appears: Non-toxic, No Acute Distress Skin: Warm, Dry, No Rash Head: Atraumatic, Normacephalic Chest: Symmetrical Cardiovascular: Rhythm Regular Respiratory: Normal Breath Sounds, No Rales, No Rhonchi, No Wheezing Neurological/Psych: Oriented x3, Normal Speech, Normal Cognition ED Course And Treatment O2 Sat by Pulse Oximetry: 100 (room air) Pulse Ox Interpretation: Normal Disposition Counseled Patient/Family Regarding: Diagnosis, Need For Followup, Rx Given - Disposition Referrals: YOUR,PMD [Other] Disposition: HOME/ ROUTINE Disposition Time: 15:26 Condition: GOOD Additional Instructions: FOLLOW UP WITH YOUR PMD FOR FURTHER REFILLS. Prescriptions: levETIRAcetam [Keppra] 500 mg PO BID #10 tab Instructions: Medicine Refill (ED) Forms: [employer] ([place]i) - Clinical Impression Clinical Impression: Medication refill - Scribe Statement The provider has reviewed the documentation as recorded by the Scribe Jermaine Isaak Provider Attestation: All medical record entries made by the Gurinder were at my direction and personally dictated by me. I have reviewed the chart and agree that the record accurately reflects my personal performance of the history, physical exam, medical decision making, and the department course for this patient. I have also personally directed, reviewed, and agree with the discharge instructions and disposition.
== END 2017-06-26 15:37 | disposition home or self-care (01) ==
LOC: C.ER 14:43
DX: Z76.0 Encounter for issue of repeat prescription (principal)

== ENCOUNTER 2017-07-26 06:42 | Emergency (ER) | payer OTHER ==
[2017-07-26 06:43] VITALS: BMI 27.4
[2017-07-26 06:58] VITALS: RESP 20
[2017-07-26] MEDS ORDERED: Sodium Chloride 0.9% 1,000 ML IV ONE (07:30)
[2017-07-26] MEDS ORDERED: Sodium Chloride 0.9% 1,000 ML ONE (07:43)
--- NOTE | 2017-07-26 07:43 | C.PDOC ---
History Of Present Illness 27-year-old female, PMHx includes Seizures, presents to the emergency department , accompanied by boyfriend with complaints of seizure. Patient states she has not taken her medication in three weeks. Boyfriend reports she has had nine seizures over the past three days, last seizure two days ago. Patient denies any numbness/weakness, bladder/bowel incontinence, tongue lacerations, or any other associated symptoms. No other complaints at this time. Time Seen by Provider: 07/26/17 07:14 Chief Complaint (Nursing): Seizure History Per: Patient History/Exam Limitations: no limitations Recent Seizure Activity Began: Days Ago: (2) Number Of Seizures: Multiple Length Of Seizures (Duration): Minutes Past Medical History Reviewed: Historical Data, Nursing Documentation, Vital Signs Vital Signs: Last Vital Signs Temp 99.1 F 07/26/17 08:44 Pulse 90 07/26/17 08:44 Resp 20 07/26/17 08:44 BP 116/70 07/26/17 08:44 Pulse Ox 98 07/26/17 13:44 - Medical History PMH: Seizures - [facility] Procedures APPLICATION OF SPLINT (02/11/15) Family History: States: No Known Family Hx - Social History Hx Tobacco Use: Yes Hx Alcohol Use: No Hx Substance Use: Yes (weed) - Immunization History Hx Tetanus Toxoid Vaccination: No Hx Influenza Vaccination: No Hx Pneumococcal Vaccination: No Review Of Systems Except As Marked, All Systems Reviewed And Found Negative. Constitutional: Negative for: Fever Cardiovascular: Negative for: Chest Pain, Palpitations Respiratory: Negative for: Shortness of Breath Gastrointestinal: Negative for: Nausea, Vomiting Musculoskeletal: Negative for: Back Pain Skin: Negative for: Rash Neurological: Positive for: Seizures. Negative for: Weakness, Numbness Physical Exam - Physical Exam Appears: Non-toxic, No Acute Distress Skin: Warm, Dry, No Rash Head: Atraumatic, Normacephalic Eye(s): bilateral: Normal Inspection, PERRL, EOMI Nose: Normal Oral Mucosa: Moist Lips: Normal Appearing Teeth: Normal Dentition Gingiva: Normal Appearing Throat: Normal, No Erythema Neck: Normal ROM Chest: Symmetrical Cardiovascular: Rhythm Regular, No Murmur Respiratory: Normal Breath Sounds, No Accessory Muscle Use Gastrointestinal/Abdominal: Bowel Sounds, Soft, No Tenderness, No Guarding Back: Normal Inspection, No Vertebral Tenderness, No Paraspinal Tenderness Extremity: Bilateral: Atraumatic, Normal Color And Temperature, Normal ROM Neurological/Psych: Oriented x3, Normal Speech Gait: Steady ED Course And Treatment - Laboratory Results Result Diagrams: 07/26/17 07:40 07/26/17 07:40 Lab Interpretation: No Changes Compared To Prior Results O2 Sat by Pulse Oximetry: 98 (room air) Pulse Ox Interpretation: Normal Medical Decision Making Medical Decision Making: Impression: 27y/o Female PMH seizure d.o complains of seizure activity, non- compliant with medication. When asked about taking her meds, she rolls her eyes and states "I don't feel like taking it everyday". Patient has multiple ER visits for similar symptoms. Plan: * CMP, UDS * CBC * Keppra, IVF * HCG/UA Progress: Labs reviewed, potassium is low, otherwise no significant changes compared to prior visits. UDS positive for cocaine and cannabis. Patient remained well with stable vital signs and no seizure activity during ER evaluation. Discussed with patient results and explain she needs to take her Keppra to treat her seizure disorder, and if unmanaged can have serious injury, disability or even . Rx was given. Patient given instructions for follow up in the clinic. Disposition Counseled Patient/Family Regarding: Studies Performed, Diagnosis, Need For Followup, Rx Given - Disposition Disposition: HOME/ ROUTINE Disposition Time: 08:50 Condition: STABLE Additional Instructions: Follow up with the clinic in 2-5 days for further evaluation. Take medications as prescribed. Follow up with the clinic in 2-5 days for further evaluation. Take medications as prescribed. Prescriptions: levETIRAcetam [Keppra] 500 mg PO BID #28 tab Instructions: Epilepsy (DC) Forms: [email or web address] (Bel[place]an) - POA Present On Arrival: None - Clinical Impression Clinical Impression: Seizure disorder - Scribe Statement The provider has reviewed the documentation as recorded by the Scribe (Jad Watt) All medical record entries made by the Scribe were at my direction and personally dictated by me. I have reviewed the chart and agree that the record accurately reflects my personal performance of the history, physical exam, medical decision making, and the department course for this patient. I have also personally directed, reviewed, and agree with the discharge instructions and disposition.
[2017-07-26 07:46] LABS: BASO % 0.2 % (0.0-2.0); EOS % 0.3 % (0.0-4.0); HEMATOCRIT 35.3 % (34.0-47.0); LYMPH # 1.9 K/uL (1.0-4.3); MEAN CELL VOLUME 72.5 fL (81.0-99.0); MEAN CORPUSCULAR HEMOGLOBIN 23.1 pg (27.0-31.0); MEAN CORPUSCULAR HGB CONC 31.9 g/dL (33.0-37.0); MEAN PLATELET VOLUME 8.2 fL (7.2-11.7); MONO # 0.9 K/uL (0.0-0.8); MONO % 7.5 % (0.0-10.0); RED CELL DISTRIBUTION WIDTH 18.7 % (11.5-14.5); WHITE BLOOD COUNT 12.4 K/uL (4.8-10.8)
[2017-07-26 07:56] LABS: RBC URINE 2 /hpf (0-3); URINE BILIRUBIN NEGATIVE (NEGATIVE); URINE BLOOD NEGATIVE (NEGATIVE); URINE CALCIUM OXALATE CRYSTALS FEW /hpf (<OCC); URINE COLOR Yellow (YELLOW); URINE GLUCOSE (UA) NORMAL (Normal); URINE KETONE NEGATIVE (NEGATIVE); URINE LEUKOCYTE ESTERASE NEG Leu/uL (Negative); URINE PROTEIN NEGATIVE (NEGATIVE); WBC URINE 3 /hpf (0-5)
[2017-07-26 07:59] LABS: CHLORIDE 102 mmol/L (98-107); POTASSIUM 3.1 mmol/L (3.6-5.2); SODIUM 140 mmol/L (132-148)
[2017-07-26 08:01] LABS: BILIRUBIN,TOTAL 0.6 mg/dL (0.2-1.3); CARBON DIOXIDE 25 mmol/L (22-30); GFR AFRICAN-AMERICAN > 60
[2017-07-26 08:02] LABS: ALB/GLOB RATIO 1.3 (1.0-2.1); ALKALINE PHOSPHATASE 65 U/L (38-126); ALT/SGPT 17 U/L (9-52); AST/SGOT 18 U/L (14-36); BLOOD UREA NITROGEN 14 mg/dL (7-17); CALCIUM 9.5 mg/dl (8.6-10.4); GLUCOSE,RANDOM 120 mg/dL (65-105); TOTAL PROTEIN 7.2 g/dL (6.3-8.3)
[2017-07-26] MEDS ORDERED: Potassium Chloride 20 mEq ER Tab PO STA (08:06)
[2017-07-26] MEDS ORDERED: Potassium Chloride 20 mEq/15 ml LIQ UD ONE (08:11)
[2017-07-26 08:44] VITALS: BP 116/70; PULSE 90; TEMP 99.1
[2017-07-26 08:45] VITALS: O2SAT 98
== END 2017-07-26 08:53 | disposition home or self-care (01) ==
LOC: C.ER 06:42
DX: G40.909 Epilepsy, unspecified, not intractable, without status epilepticus (principal)
CPT/HCPCS: 80053; 80324; 80345; 80346; 80349; 80353; 80358; 80361; 81001; 83992; 84703; 85025; 96360; 99285; J7040

== ENCOUNTER 2018-03-03 09:57 | Observation (INO) | payer OTHER ==
[2018-03-03 09:57] VITALS: BMI 27.4
--- NOTE | 2018-03-03 11:04 | C.PDOC ---
History Of Present Illness 27 y/o female, w/PMhx of seizures, presents to the ER for evaluation of seizures which occurred during the past 3 days. Patient states that she fell and hit her face on the floor while she was having a seizure. Patient reports that she had 4 witnessed seizures back to back today. She notes that she was taking Keppra for her seizures. She stopped taking Keppra 6 months ago because she is " busy." Time Seen by Provider: 03/03/18 10:37 Chief Complaint (Nursing): Seizure History Per: Patient History/Exam Limitations: no limitations Number Of Seizures: Multiple Severity: Moderate Past Medical History Reviewed: Historical Data, Nursing Documentation, Vital Signs Vital Signs: Last Vital Signs Temp 98.3 F 03/03/18 16:50 Pulse 99 H 03/03/18 16:50 Resp 20 03/03/18 16:50 BP 105/69 03/03/18 16:50 Pulse Ox 96 03/03/18 16:50 - Medical History PMH: Seizures (NOT TAKING MEDS) Denies: Chronic Kidney Disease Surgical History: No Surg Hx - [facility] Procedures APPLICATION OF SPLINT (02/11/15) Family History: States: No Known Family Hx - Social History Hx Tobacco Use: Yes Hx Alcohol Use: No Hx Substance Use: Yes (LAST USED 4 DAYS AGO) - Immunization History Hx Tetanus Toxoid Vaccination: No Hx Influenza Vaccination: No Hx Pneumococcal Vaccination: No Review Of Systems Except As Marked, All Systems Reviewed And Found Negative. Constitutional: Negative for: Fever, Chills Neurological: Positive for: Seizures Physical Exam - Physical Exam Appears: Non-toxic, No Acute Distress Skin: Warm, Dry, Ecchymosis (ecchymosis to chin) Head: Atraumatic, Normacephalic, Tenderness (tenderness to palpation to mandible ) Eye(s): bilateral: Normal Inspection Nose: Normal Oral Mucosa: Moist Tongue: Bite (bite mitesh on left side of tongue) Neck: Supple Chest: Symmetrical Cardiovascular: Rhythm Regular Respiratory: Normal Breath Sounds, No Rales, No Rhonchi, No Wheezing Extremity: Normal ROM Neurological/Psych: Oriented x3, Normal Speech ED Course And Treatment - Laboratory Results Result Diagrams: 03/03/18 11:25 03/03/18 11:25 ECG: Interpreted By Me, Viewed By Me ECG Rhythm: Sinus Tachycardia Interpretation Of ECG: Sinus Tachycardia with premature supraventricular complexes Rate From EC O2 Sat by Pulse Oximetry: 99 (RA) Pulse Ox Interpretation: Normal - CT Scan/US CT-Head Other Rad Studies (CT/US): Read By Radiologist, Radiology Report Reviewed CT/US Interpretation: PROCEDURE: CT HEAD WITHOUT CONTRAST. HISTORY: seizure/ fall/injury. COMPARISON: None available. TECHNIQUE: Axial computed tomography images were obtained through the head/brain without intravenous contrast. Radiation dose: Total exam DLP = 04/29/2017 mGy-cm. This CT exam was performed using one or more of the following dose reduction techniques: Automated exposure control, adjustment of the mA and/or kV according to patient size, and/or use of iterative reconstruction technique. FINDINGS: HEMORRHAGE: No intracranial hemorrhage. BRAIN: No mass effect or edema. No atrophy or chronic microvascular ischemic changes. VENTRICLES: Unremarkable. No hydrocephalus. CALVARIUM: Unremarkable. PARANASAL SINUSES: Minimal chronic left maxillary sinusitis. MASTOID AIR CELLS: Unremarkable as visualized. No inflammatory changes. OTHER FINDINGS: None. IMPRESSION: No intracranial hemorrhage. Minimal chronic left maxillary sinusitis. Otherwise unremarkable examination. CT-Orbits Other Rad Studies (CT/US): Read By Radiologist, Radiology Report Reviewed CT/US Interpretation: PROCEDURE: CT ORBITS WITHOUT CONTRAST. HISTORY: seizure /fall/injury. COMPARISON: None available. TECHNIQUE: Axial CT images of the orbits were obtained. Coronal and sagittal reformats were generated. Radiation dose: Total exam DLP = 788.64 mGy-cm. This CT exam was performed using one or more of the following dose reduction techniques: Automated exposure control, adjustment of the mA and/or kV according to patient size, and/or use of iterative reconstruction technique. FINDINGS: RIGHT ORBIT: RIGHT BONY ORBIT: Normal. RIGHT INTRAORBITAL STRUCTURES: Globe: Normal. Extraocular muscles: Normal. Post septal space: Normal. Optic Nerve: Normal. Lacrimal Apparatus: Normal. RIGHT PRESEPTAL SOFT TISSUES: Normal. LEFT ORBIT: LEFT BONY ORBIT: Normal. LEFT INTRAORBITAL STRUCTURES: Globe: Normal. Extraocular muscles: Normal. Post septal space: Normal. Optic Nerve: Normal. . Lacrimal Apparatus : Normal. LEFT PRESEPTAL SOFT TISSUES: Normal. OTHER: A nondisplaced nasal tip fracture of indeterminate age. Shotty level 1 and 2 cervix lymph nodes, up to 11 mm in short axis. IMPRESSION: No abnormality of the orbits. Nondisplaced nasal tip fracture of indeterminate age. Shotty cervical lymphadenopathy, likely reactive Otherwise unremarkable. Progress Note: Labs, CXR, CT- Head, CT- Orbits ordered. Patient given Keppra 1000 IV bolus and IV Fluids. Case discussed with Dr.Naresh Wolf. Patient will be admitted to Telemetry for observation under Dr. Wolf's service. Case was d/ w Neurologist button station worker who agreed with the plan and will evaluate patient later today. Disposition - Disposition Disposition: HOSPITALIZED Disposition Time: 14:37 Condition: FAIR - Clinical Impression Clinical Impression: Seizure - PA / RESIDENTIAL BUILDING INSPECTOR / Resident Statement MD/DO has reviewed & agrees with the documentation as recorded. - Scribe Statement The provider has reviewed the documentation as recorded by the Scribe Eleuterio Nava Provider Attestation All medical record entries made by the Scribe were at my direction and personally dictated by me. I have reviewed the chart and agree that the record accurately reflects my personal performance of the history, physical exam, medical decision making, and the department course for this patient. I have also personally directed, reviewed, and agree with the discharge instructions and disposition. Decision To Admit - Pt Status Changed To: Hospital Disposition Of: Observation - . Bed Request Type: Telemetry Admitting Physician: Vinh Wolf Patient Diagnosis: Seizure
[2018-03-03] MEDS ORDERED: levETIRAcetam 500 MG in Sodium Chloride 0.9% 100 ML IVPB STA ×2 (11:07→14:49)
[2018-03-03] MEDS ORDERED: Sodium Chloride 0.9% 1,000 ML IV STA (11:07)
[2018-03-03] MEDS ORDERED: Sodium Chloride 0.9% 1,000 ML ONE (11:28)
[2018-03-03 11:30] LABS: BASO % 0.1 % (0.0-2.0); HEMOGLOBIN 11.9 g/dL (11.0-16.0); LYMPH # 0.9 K/uL (1.0-4.3); LYMPH % 4.7 % (20.0-40.0); MEAN CORPUSCULAR HGB CONC 32.3 g/dL (33.0-37.0); MEAN PLATELET VOLUME 8.6 fL (7.2-11.7); MONO # 0.8 K/uL (0.0-0.8); MONO % 4.3 % (0.0-10.0); NEUT # 16.7 K/uL (1.8-7.0); NEUT % 90.9 % (50.0-75.0); PLATELET COUNT 386 K/uL (130-400); RBC 4.76 Mil/uL (3.80-5.20); RED CELL DISTRIBUTION WIDTH 18.4 % (11.5-14.5); WHITE BLOOD COUNT 18.3 K/uL (4.8-10.8)
[2018-03-03 11:35] LABS: MEAN CELL VOLUME 77.3 fL (81.0-99.0)
[2018-03-03 11:36] LABS: SQUAMOUS EPITHIAL 15 /hpf (0-5); URINE BILIRUBIN NEGATIVE (NEGATIVE); URINE BLOOD NEGATIVE (NEGATIVE); URINE CLARITY Hazy (Clear); URINE COLOR Yellow (YELLOW); URINE GLUCOSE (UA) NORMAL (Normal); URINE LEUKOCYTE ESTERASE 1+ Leu/uL (Negative); URINE PROTEIN 1+ mg/dL (NEGATIVE); URINE UROBILINOGEN NORMAL mg/dL (0.2-1.0)
[2018-03-03 11:38] LABS: HCG,QUALITATIVE URINE NEGATIVE (NEGATIVE)
[2018-03-03 11:48] LABS: ALB/GLOB RATIO 1.3 (1.0-2.1); ALBUMIN 4.1 g/dL (3.5-5.0); ALT/SGPT 11 U/L (9-52); AST/SGOT 40 U/L (14-36); BLOOD UREA NITROGEN 11 mg/dL (7-17); CALCIUM 8.9 mg/dl (8.6-10.4); GFR AFRICAN-AMERICAN > 60; GFR NON-AFRICAN AMERICAN > 60
[2018-03-03 11:56] LABS: ANISOCYTOSIS MODERATE; BANDS 1 % (0-2); LYMPHOCYTE 5 % (20-40); MONOCYTE 2 % (0-10); NEUTROPHIL 92 % (50-75); PLATELET ESTIMATE NORMAL (NORMAL); TOTAL CELLS COUNTED 100
[2018-03-03 11:57] LABS: OVALOCYTES SLIGHT
[2018-03-03 12:07] LABS: BARBITURATES, UR NEGATIVE (NEGATIVE); BENZODIAZEPINES, UR NEGATIVE (NEGATIVE); PHENCYCLIDINE, UR NEGATIVE (NEGATIVE)
[2018-03-03 12:16] LABS: OPIATES, UR POSITIVE (NEGATIVE)
--- NOTE | 2018-03-03 13:25 | CT ---
PROCEDURE: CT HEAD WITHOUT CONTRAST. HISTORY: seizure/fall/injury COMPARISON: None available. TECHNIQUE: Axial computed tomography images were obtained through the head/brain without intravenous contrast. Radiation dose: Total exam DLP = 04/29/2017 mGy-cm. This CT exam was performed using one or more of the following dose reduction techniques: Automated exposure control, adjustment of the mA and/or kV according to patient size, and/or use of iterative reconstruction technique. FINDINGS: HEMORRHAGE: No intracranial hemorrhage. BRAIN: No mass effect or edema. No atrophy or chronic microvascular ischemic changes. VENTRICLES: Unremarkable. No hydrocephalus. CALVARIUM: Unremarkable. PARANASAL SINUSES: Minimal chronic left maxillary sinusitis. MASTOID AIR CELLS: Unremarkable as visualized. No inflammatory changes. OTHER FINDINGS: None. IMPRESSION: No intracranial hemorrhage. Minimal chronic left maxillary sinusitis. Otherwise unremarkable examination.
--- NOTE | 2018-03-03 13:31 | CT ---
PROCEDURE: CT ORBITS WITHOUT CONTRAST. HISTORY: seizure/fall/injury COMPARISON: None available. TECHNIQUE: Axial CT images of the orbits were obtained. Coronal and sagittal reformats were generated. Radiation dose: Total exam DLP = 788.64 mGy-cm. This CT exam was performed using one or more of the following dose reduction techniques: Automated exposure control, adjustment of the mA and/or kV according to patient size, and/or use of iterative reconstruction technique. FINDINGS: RIGHT ORBIT: RIGHT BONY ORBIT: Normal. RIGHT INTRAORBITAL STRUCTURES: Globe: Normal. Extraocular muscles: Normal. Post septal space: Normal. Optic Nerve: Normal. Lacrimal Apparatus: Normal. RIGHT PRESEPTAL SOFT TISSUES: Normal. LEFT ORBIT: LEFT BONY ORBIT: Normal. LEFT INTRAORBITAL STRUCTURES: Globe: Normal. Extraocular muscles: Normal. Post septal space: Normal Optic Nerve: Normal. . Lacrimal Apparatus: Normal. LEFT PRESEPTAL SOFT TISSUES: Normal. OTHER: A nondisplaced nasal tip fracture of indeterminate age. Shotty level 1 and 2 cervix lymph nodes, up to 11 mm in short axis. IMPRESSION: No abnormality of the orbits. Nondisplaced nasal tip fracture of indeterminate age. Shotty cervical lymphadenopathy, likely reactive Otherwise unremarkable.
--- NOTE | 2018-03-03 14:01 | RAD ---
HISTORY: seizure, elevated WBCs COMPARISON: 04/29/2017 TECHNIQUE: Chest PA and lateral FINDINGS: LUNGS: No active pulmonary disease. PLEURA: No significant pleural effusion identified. No pneumothorax apparent. CARDIOVASCULAR: Normal. OSSEOUS STRUCTURES: No significant abnormalities. VISUALIZED UPPER ABDOMEN: Normal. OTHER FINDINGS: None. IMPRESSION: No active disease.
--- NOTE | 2018-03-03 16:04 | CP.PCM.HP ---
History of Present Illness - History of Present Illness History of Present Illness: CC: witnessed seizures 27F with past medical history of multiple seizures came to the ER because she had witnessed seizures by mother. Patient's mother said she had about 4 seizures. Patient's mother states that seizures were witnessed and that patient hasn't had her seizure medications in a really long time because of insurance. Her first one was at age 4 then did not have any until age 21. Since age 21, patient reports having 1-2 seizures per year. Patient states she takes special K and the last day was 5 days ago. Patient states her last use of marijuana was 2 days ago. Patient denies fever, chills, nausea, vomiting, diarrhea. Patient states her lower abdomen is sore, has been coughing a productive cough for two days, has sore throat. Patient's mom Rolanda states that she fell straight forward , hit her chin, had a small cut on lateral tongue and left upper lip cut. Patient states that she was evaluated by neurologist 2 years ago with a negative workup. She also reports smoking marijuana daily since age 18. Patient suspects seizures occur because "she has not been smoking for a while". Patient did not smoke marijuana for about a day and a half. Denies fever/chills, cp, sob, abd pain, nausea/vomiting, diarrhea, constipation, or any other complaints. PMH: History of seizures Meds: Denies Allergy: NKDA PSH: Denies FH: father has htn, patient has half brothers on father's side with no medical issues. mother has no medical issues but smokes as well. Social: lives with mother after fighting with boyfriend and is estranged relationship with father, smokes 10 cigarettes daily, smokes 1/8 of an oz of marijuana per day, quit drinking ETOH 3 years ago - use to drink a fifth of vodka per day. Patient takes special k (Ketamine, intranasally), marijuana PMD: none Present on Admission - Present on Admission Any Indicators Present on Admission: No History of DVT/PE: No History of Uncontrolled Diabetes: No Urinary Catheter: No Decubitus Ulcer Present: No Review of Systems - Constitutional Constitutional: As Per HPI - EENT Eyes: As Per HPI Ears: As Per HPI Nose/Mouth/Throat: As Per HPI - Cardiovascular Cardiovascular: As Per HPI - Respiratory Respiratory: Cough, Excessive Mucous Production. absent: Wheezing, Snoring, Stridor, Pain on Inspiration, Chest Congestion, Change in Mucous Color - Gastrointestinal Gastrointestinal: As Per HPI - Musculoskeletal Musculoskeletal: absent: Abnormal Gait, Back Pain, Limited Range of Motion, Muscle Cramps, Muscle Weakness, Neck Pain, Numbness, Radiating Pain into Limb, Stiffness, Tingling - Neurological Neurological: Convulsions, Weakness - Psychiatric Psychiatric: absent: Change in Appetite, Confusion, Depression, Difficulty Concentrating - Endocrine Endocrine: Fatigue. absent: Change in Body Appearance, Deepening of Voice, Excessive Sweating Past Patient History - Infectious Disease Hx of Infectious Diseases: None - Past Medical History & Family History Past Medical History?: Yes - Past Social History Smoking Status: Heavy Smoker > 10 Cigarettes Daily - CARDIAC Hx Cardiac Disorders: No - PULMONARY Hx Respiratory Disorders: No - NEUROLOGICAL Hx Seizures: Yes (NOT TAKING MEDS) - HEENT Hx HEENT Problems: No - RENAL Hx Chronic Kidney Disease: No - ENDOCRINE/METABOLIC Hx Endocrine Disorders: No - HEMATOLOGICAL/ONCOLOGICAL Hx Blood Disorders: No - INTEGUMENTARY Hx Dermatological Problems: No - MUSCULOSKELETAL/RHEUMATOLOGICAL Hx Falls: No - GASTROINTESTINAL Hx Gastrointestinal Disorders: No - GENITOURINARY/GYNECOLOGICAL Hx Genitourinary Disorders: No - PSYCHIATRIC Hx Substance Use: Yes (LAST USED 4 DAYS AGO) - SURGICAL HISTORY Hx Surgeries: No - ANESTHESIA Hx Anesthesia: No Meds Allergies/Adverse Reactions: Allergies Allergy/AdvReac Type Severity Reaction Status Date / Time No Known Allergies Allergy Verified 03/03/18 10:09 Physical Exam - Constitutional Appears: No Acute Distress - Head Exam Head Exam: absent: ATRAUMATIC, NORMAL INSPECTION Additional comments: patient has a left chin raised bump with echymosis and tenderness to palpation left upper lip laceration healing - Eye Exam Eye Exam: EOMI, Normal appearance Pupil Exam: NORMAL ACCOMODATION, PERRL - ENT Exam ENT Exam: Mucous Membranes Dry, Mucous Membranes Moist, Normal Exam Additional comments: right lateral tongue laceration no active bleeding - Neck Exam Neck exam: Positive for: Full Rom. Negative for: Tenderness - Respiratory Exam Respiratory Exam: Accessory Muscle Use, NORMAL BREATHING PATTERN. absent: Respiratory Distress - Cardiovascular Exam Cardiovascular Exam: REGULAR RHYTHM, +S1, +S2. absent: Bradycardia, Tachycardia - GI/Abdominal Exam GI & Abdominal Exam: Soft. absent: Distended, Guarding, Rebound, Tenderness - Extremities Exam Extremities exam: Positive for: full ROM, normal capillary refill, normal inspection. Negative for: pedal edema - Back Exam Back exam: FULL ROM, NORMAL INSPECTION. absent: paraspinal tenderness - Neurological Exam Neurological exam: CN II-XII Intact, Oriented x3, Reflexes Normal - Psychiatric Exam Psychiatric exam: Normal Affect, Normal Mood - Skin Skin Exam: Dry, Intact, Normal Color, Warm Results - Vital Signs Recent Vital Signs: Last Vital Signs Temp 98.7 F 03/03/18 15:32 Pulse 94 H 03/03/18 15:32 Resp 20 03/03/18 15:32 BP 110/71 03/03/18 15:32 Pulse Ox 99 03/03/18 15:32 - Labs Result Diagrams: 03/03/18 11:25 03/03/18 11:25 Labs: Laboratory Results - last 24 hr 03/03/18 03/03/18 03/03/18 10:23 11:25 11:25 WBC 18.3 H RBC 4.76 Hgb 11.9 Hct 36.8 MCV 77.3 L D MCH 25.0 L MCHC 32.3 L RDW 18.4 H Plt Count 386 MPV 8.6 Neut % (Auto) 90.9 H Lymph % (Auto) 4.[address] % (Auto) 4.3 Eos % (Auto) 0.0 Baso % (Auto) 0.1 Neut # (Auto) 16.7 H Lymph # (Auto) 0.[address] # (Auto) 0.8 Eos # (Auto) 0.0 Baso # (Auto) 0.0 Neutrophils % (Manual) 92 H Band Neutrophils % 1 Lymphocytes % (Manual) 5 L Monocytes % (Manual) 2 Platelet Estimate Normal Anisocytosis (manual) Moderate Ovalocytes Slight Sodium Potassium Chloride Carbon Dioxide Anion Gap BUN Creatinine Est GFR ( Amer) Est GFR (Non-Af Amer) POC Glucose (mg/dL) 97 Random Glucose Calcium Total Bilirubin AST ALT Alkaline Phosphatase Total Creatine Kinase Total Protein Albumin Globulin Albumin/Globulin Ratio Urine Color Yellow Urine Clarity Hazy Urine pH 5.0 Ur Specific [place] 1.019 Urine Protein 1+ H Urine Glucose (UA) Normal Urine Ketones Negative Urine Blood Negative Urine Nitrate Negative Urine Bilirubin Negative Urine Urobilinogen Normal Ur Leukocyte Esterase 1+ H Urine WBC (Auto) 6 H Urine RBC (Auto) 1 Ur Squamous Epith Cells 15 H Urine HCG, Qual Negative Urine Opiates Screen Urine Methadone Screen Ur Barbiturates Screen Ur Phencyclidine Scrn Ur Amphetamines Screen U Benzodiazepines Scrn U Oth Cocaine Metabols U Cannabinoids Screen Alcohol, Quantitative 03/03/18 03/03/18 11:25 11:25 WBC RBC Hgb Hct MCV MCH MCHC RDW Plt Count MPV Neut % (Auto) Lymph % (Auto) [place] % (Auto) Eos % (Auto) Baso % (Auto) Neut # (Auto) Lymph # (Auto) [place] # (Auto) Eos # (Auto) Baso # (Auto) Neutrophils % (Manual) Band Neutrophils % Lymphocytes % (Manual) Monocytes % (Manual) Platelet Estimate Anisocytosis (manual) Ovalocytes Sodium 141 Potassium 4.8 Chloride 103 Carbon Dioxide 18 L Anion Gap 24 H BUN 11 Creatinine 0.7 Est GFR ( Amer) > 60 Est GFR (Non-Af Amer) > 60 POC Glucose (mg/dL) Random Glucose 86 Calcium 8.9 Total Bilirubin 0.3 AST 40 H ALT 11 Alkaline Phosphatase 68 Total Creatine Kinase 66 Total Protein 7.3 Albumin 4.1 Globulin 3.2 Albumin/Globulin Ratio 1.3 Urine Color Urine Clarity Urine pH Ur Specific [place] Urine Protein Urine Glucose (UA) Urine Ketones Urine Blood Urine Nitrate Urine Bilirubin Urine Urobilinogen Ur Leukocyte Esterase Urine WBC (Auto) Urine RBC (Auto) Ur Squamous Epith Cells Urine HCG, Qual Urine Opiates Screen Positive H Urine Methadone Screen Negative Ur Barbiturates Screen Negative Ur Phencyclidine Scrn Negative Ur Amphetamines Screen Negative U Benzodiazepines Scrn Negative U Oth Cocaine Metabols Positive H U Cannabinoids Screen Positive H Alcohol, Quantitative < 10 Assessment & Plan - Assessment and Plan (Free Text) Assessment: 1. Seizure: noncompliance with meds tongue has small laceration on right lateral side. neurology Dr. Boo EEG Keppra 500 mg PO Q12H Seizure precautions 2. Multi-substance abuse Psych Dr. Perez alcohol <10 UDS positive for cocaine and no beta blockers due to cocaine use no narcotic pain medications 3. Productive cough CXR clear 4. Leukocytosis vitals stable at this point. no fevers f/u am labs 5. Abnormal RBC indices likely secondary to iron deficiency f/u AM Iron studies 6. prophylaxis: no ppi dvt score of [address] Vinh Niño Eng DO PGY1 - Date & Time Date: 03/03/18 Time: 16:51
--- NOTE | 2018-03-04 07:08 | CP.PCM.DIS ---
<Renay Mayorga - Last Filed: 03/04/18 15:48> Provider - Provider Date of Admission: 03/03/18 14:35 Attending physician: Vinh Wolf MD Consults: Dr. Boo Time Spent in preparation of Discharge (in minutes): 35 Diagnosis - Discharge Diagnosis (1) Seizure Status: Chronic Comment: no ocurrence during hospital stay (2) Contusion Status: Acute Comment: well healing (3) Laceration of lip Status: Acute Hospital Course - Lab Results Lab Results: Most Recent Lab Values WBC 18.3 K/uL (4.8-10.8) H 03/03/18 11:25 RBC 4.76 Mil/uL (3.80-5.20) 03/03/18 11:25 Hgb 11.9 g/dL (11.0-16.0) 03/03/18 11:25 Hct 36.8 % (34.0-47.0) 03/03/18 11:25 MCV 77.3 fL (81.0-99.0) L D 03/03/18 11:25 MCH 25.0 pg (27.0-31.0) L 03/03/18 11:25 MCHC 32.3 g/dL (33.0-37.0) L 03/03/18 11:25 RDW 18.4 % (11.5-14.5) H 03/03/18 11:25 Plt Count 386 K/uL (130-400) 03/03/18 11:25 MPV 8.6 fL (7.2-11.7) 03/03/18 11:25 Neut % (Auto) 90.9 % (50.0-75.0) H 03/03/18 11:25 Lymph % (Auto) 4.7 % (20.0-40.0) L 03/03/18 11:25 [place] % (Auto) 4.3 % (0.0-10.0) 03/03/18 11:25 Eos % (Auto) 0.0 % (0.0-4.0) 03/03/18 11:25 Baso % (Auto) 0.1 % (0.0-2.0) 03/03/18 11:25 Neut # (Auto) 16.7 K/uL (1.8-7.0) H 03/03/18 11:25 Lymph # (Auto) 0.9 K/uL (1.0-4.3) L 03/03/18 11:25 [place] # (Auto) 0.8 K/uL (0.0-0.8) 03/03/18 11:25 Eos # (Auto) 0.0 K/uL (0.0-0.7) 03/03/18 11:25 Baso # (Auto) 0.0 K/uL (0.0-0.2) 03/03/18 11:25 Neutrophils % (Manual) 92 % (50-75) H 03/03/18 11:25 Band Neutrophils % 1 % (0-2) 03/03/18 11:25 Lymphocytes % (Manual) 5 % (20-40) L 03/03/18 11:25 Monocytes % (Manual) 2 % (0-10) 03/03/18 11:25 Platelet Estimate Normal (NORMAL) 03/03/18 11:25 Anisocytosis (manual) Moderate 03/03/18 11:25 Ovalocytes Slight 03/03/18 11:25 Sodium 141 mmol/L (132-148) 03/03/18 11:25 Potassium 4.8 mmol/L (3.6-5.2) 03/03/18 11:25 Chloride 103 mmol/L (98-107) 03/03/18 11:25 Carbon Dioxide 18 mmol/L (22-30) L 03/03/18 11:25 Anion Gap 24 (10-20) H 03/03/18 11:25 BUN 11 mg/dL (7-17) 03/03/18 11:25 Creatinine 0.7 mg/dL (0.7-1.2) 03/03/18 11:25 Est GFR ( Amer) > 60 03/03/18 11:25 Est GFR (Non-Af Amer) > 60 03/03/18 11:25 POC Glucose (mg/dL) 97 mg/dL (65-110) 03/03/18 10:23 Random Glucose 86 mg/dL (65-105) 03/03/18 11:25 Calcium 8.9 mg/dl (8.6-10.4) 03/03/18 11:25 Total Bilirubin 0.3 mg/dL (0.2-1.3) 03/03/18 11:25 AST 40 U/L (14-36) H 03/03/18 11:25 ALT 11 U/L (9-52) 03/03/18 11:25 Alkaline Phosphatase 68 U/L (38-126) 03/03/18 11:25 Total Creatine Kinase 66 U/L (30-135) 03/03/18 11:25 Total Protein 7.3 g/dL (6.3-8.3) 03/03/18 11:25 Albumin 4.1 g/dL (3.5-5.0) 03/03/18 11:25 Globulin 3.2 gm/dL (2.2-3.9) 03/03/18 11:25 Albumin/Globulin Ratio 1.3 (1.0-2.1) 03/03/18 11:25 Urine Color Yellow (YELLOW) 03/03/18 11:25 Urine Clarity Hazy (Clear) 03/03/18 11:25 Urine pH 5.0 (5.0-8.0) 03/03/18 11:25 Ur Specific [place] 1.019 (1.003-1.030) 03/03/18 11:25 Urine Protein 1+ mg/dL (NEGATIVE) H 03/03/18 11:25 Urine Glucose (UA) Normal mg/dL (Normal) 03/03/18 11:25 Urine Ketones Negative mg/dL (NEGATIVE) 03/03/18 11:25 Urine Blood Negative (NEGATIVE) 03/03/18 11:25 Urine Nitrate Negative (NEGATIVE) 03/03/18 11:25 Urine Bilirubin Negative (NEGATIVE) 03/03/18 11:25 Urine Urobilinogen Normal mg/dL (0.2-1.0) 03/03/18 11:25 Ur Leukocyte Esterase 1+ Didi/uL (Negative) H 03/03/18 11:25 Urine WBC (Auto) 6 /hpf (0-5) H 03/03/18 11:25 Urine RBC (Auto) 1 /hpf (0-3) 03/03/18 11:25 Ur Squamous Epith Cells 15 /hpf (0-5) H 03/03/18 11:25 Urine HCG, Qual Negative (NEGATIVE) 03/03/18 11:25 Urine Opiates Screen Positive (NEGATIVE) H 03/03/18 11:25 Urine Methadone Screen Negative (NEGATIVE) 03/03/18 11:25 Ur Barbiturates Screen Negative (NEGATIVE) 03/03/18 11:25 Ur Phencyclidine Scrn Negative (NEGATIVE) 03/03/18 11:25 Ur Amphetamines Screen Negative (NEGATIVE) 03/03/18 11:25 U Benzodiazepines Scrn Negative (NEGATIVE) 03/03/18 11:25 U Oth Cocaine Metabols Positive (NEGATIVE) H 03/03/18 11:25 U Cannabinoids Screen Positive (NEGATIVE) H 03/03/18 11:25 Alcohol, Quantitative < 10 mg/dl (0-10) 03/03/18 11:25 - Hospital Course Hospital Course: HPI 27F with past medical history of multiple seizures came to the ER because she had witnessed seizures by mother. Patient's mother said she had about 4 seizures. Patient's mother states that seizures were witnessed and that patient hasn't had her seizure medications in a really long time because of insurance. Her first one was at age 4 then did not have any until age 21. Since age 21, patient reports having 1-2 seizures per year. Patient states she takes special K and the last day was 5 days ago. Patient states her last use of marijuana was 2 days ago. Patient denies fever, chills, nausea, vomiting, diarrhea. Patient states her lower abdomen is sore, has been coughing a productive cough for two days, has sore throat. Patient's mom Rolanda states that she fell straight forward , hit her chin, had a small cut on lateral tongue and left upper lip cut. Patient states that she was evaluated by neurologist 2 years ago with a negative workup. She also reports smoking marijuana daily since age 18. Patient suspects seizures occur because "she has not been smoking for a while". Patient did not smoke marijuana for about a day and a half. Denies fever/chills, cp, sob, abd pain, nausea/vomiting, diarrhea, constipation, or any other complaints. Patient last smoked marijuana 4/1 days ago with cocaine laced. Patient states she's sexually active without condom protection or oral contraceptives. Hospital Course During hospital course, EEG was done, CT head and orbit negative for fractures, hematoma in cranial space, no stroke. Dr. Boo was consulted. Patient requested Xanax overnight, was denied due to polysubstance abuse history and lack of clinical indication for xanax usage. Patient had EEG done which was normal. Patient discharged with prescription for Keppra and instructions to take medication every day with breakfast. Patient was discharged with instructions to: 1). You stated that you already have a Primary Care Physician located on [facility] and that you had his information at home. Please schedule an appointment with him to take place in the next 7 days to help coordinate your care. 2). Through your Primary Care Physician's office please follow up the following tests whose results were still pending at the time of your discharge: EEG (to measure your brain waves) HIV Testing 3). Please schedule an appointment with Neurologist Dr. Boo to take place in the next 7 days by calling [phone]. Dr. Boo's office is located at [address] [place] [address] [address] [place] [address]. She will help follow you for your history of Seizures. 4). You can NOT drive a car. 5). Please have the following prescription filled your pharmacy on the way home from the hospital and take as directed: Keppra 1,000 mg, 1 tablet by mouth 1x/day (breakfast), Dispense #30, NO refills 6). Please follow up with [facility] located on [address] in [place], [place]. They have meetings at 9:30 AM to 11:00 AM. Please go as this will likely save your life. 7). Failure to follow the above instructions will have serious consequence to your health. 8). Please take care of yourself and be well. Vinh Wolf D.O. This is a brief summary of patient's stay here at the hospital. For further information, please see EMR Discharge Exam - Head Exam Head Exam: absent: ATRAUMATIC (patient has ecchymosis on bottom of chin, lip laceration that's healing), NORMAL INSPECTION - Eye Exam Eye Exam: EOMI, Normal appearance Pupil Exam: NORMAL ACCOMODATION - Cardiovascular Exam Cardiovascular Exam: REGULAR RHYTHM, +S1, +S2 - GI/Abdominal Exam GI & Abdominal Exam: Soft. absent: Tenderness - Extremities Exam Extremities exam: full ROM - Back Exam Back exam: FULL ROM, NORMAL INSPECTION - Neurological Exam Neurological exam: Alert, CN II-XII Intact, Oriented x3 - Psychiatric Exam Psychiatric exam: Normal Affect, Normal Mood - Skin Skin Exam: Dry, Intact, Normal Color, Warm Discharge Plan - Discharge Medications Prescriptions: levETIRAcetam [Keppra] 500 mg PO BID #60 tab - Follow Up Plan Condition: FAIR Disposition: HOME/ ROUTINE Instructions: Heart Healthy Diet, Seizures, Adult (DC), Levetiracetam Additional Instructions: The following instructions were explained to the patient and a copy will be provided to her upon discharge: 1). You stated that you already have a Primary Care Physician located on [facility] and that you had his information at home. Please schedule an appointment with him to take place in the next 7 days to help coordinate your care. 2). Through your Primary Care Physician's office please follow up the following tests whose results were still pending at the time of your discharge: EEG (to measure your brain waves) HIV Testing 3). Please schedule an appointment with Neurologist Dr. Boo to take place in the next 7 days by calling [phone]. Dr. Boo's office is located at [address] [place] [address] [address] [place] [address]. She will help follow you for your history of Seizures. 4). You can NOT drive a car. 5). Please have the following prescription filled your pharmacy on the way home from the hospital and take as directed: Keppra 1,000 mg, 1 tablet by mouth 1x/day (breakfast), Dispense #30, NO refills 6). Please follow up with [facility] located on [address] in [place], [place]. They have meetings at 9:30 AM to 11:00 AM. Please go as this will likely save your life. 7). Failure to follow the above instructions will have serious consequence to your health. 8). Please take care of yourself and be well. Vinh Wolf D.O. <Vinh Wolf - Last Filed: 03/04/18 17:55> Provider - Provider Date of Admission: 03/03/18 14:35 Attending physician: Vinh Wolf MD Time Spent in preparation of Discharge (in minutes): 40 Hospital Course - Lab Results Lab Results: Most Recent Lab Values WBC 8.8 K/uL (4.8-10.8) D 03/04/18 10:45 RBC 4.59 Mil/uL (3.80-5.20) 03/04/18 10:45 Hgb 11.6 g/dL (11.0-16.0) 03/04/18 10:45 Hct 35.0 % (34.0-47.0) 03/04/18 10:45 MCV 76.3 fL (81.0-99.0) L 03/04/18 10:45 MCH 25.2 pg (27.0-31.0) L 03/04/18 10:45 MCHC 33.0 g/dL (33.0-37.0) 03/04/18 10:45 RDW 18.3 % (11.5-14.5) H 03/04/18 10:45 Plt Count 332 K/uL (130-400) 03/04/18 10:45 MPV 8.2 fL (7.2-11.7) 03/04/18 10:45 Neut % (Auto) 70.6 % (50.0-75.0) 03/04/18 10:45 Lymph % (Auto) 22.2 % (20.0-40.0) 03/04/18 10:45 [place] % (Auto) 6.7 % (0.0-10.0) 03/04/18 10:45 Eos % (Auto) 0.4 % (0.0-4.0) 03/04/18 10:45 Baso % (Auto) 0.1 % (0.0-2.0) 03/04/18 10:45 Neut # (Auto) 6.2 K/uL (1.8-7.0) 03/04/18 10:45 Lymph # (Auto) 2.0 K/uL (1.0-4.3) 03/04/18 10:45 [place] # (Auto) 0.6 K/uL (0.0-0.8) 03/04/18 10:45 Eos # (Auto) 0.0 K/uL (0.0-0.7) 03/04/18 10:45 Baso # (Auto) 0.0 K/uL (0.0-0.2) 03/04/18 10:45 Neutrophils % (Manual) 92 % (50-75) H 03/03/18 11:25 Band Neutrophils % 1 % (0-2) 03/03/18 11:25 Lymphocytes % (Manual) 5 % (20-40) L 03/03/18 11:25 Monocytes % (Manual) 2 % (0-10) 03/03/18 11:25 Platelet Estimate Normal (NORMAL) 03/03/18 11:25 Anisocytosis (manual) Moderate 03/03/18 11:25 Ovalocytes Slight 03/03/18 11:25 Sodium 139 mmol/L (132-148) 03/04/18 10:45 Potassium 3.8 mmol/L (3.6-5.2) 03/04/18 10:45 Chloride 105 mmol/L (98-107) 03/04/18 10:45 Carbon Dioxide 23 mmol/L (22-30) 03/04/18 10:45 Anion Gap 15 (10-20) 03/04/18 10:45 BUN 10 mg/dL (7-17) 03/04/18 10:45 Creatinine 0.7 mg/dL (0.7-1.2) 03/04/18 10:45 Est GFR ( Amer) > 60 03/04/18 10:45 Est GFR (Non-Af Amer) > 60 03/04/18 10:45 POC Glucose (mg/dL) 97 mg/dL (65-110) 03/03/18 10:23 Random Glucose 92 mg/dL (65-105) 03/04/18 10:45 Calcium 8.8 mg/dl (8.6-10.4) 03/04/18 10:45 Phosphorus 2.9 mg/dL (2.5-4.5) 03/04/18 10:45 Magnesium 1.9 mg/dL (1.6-2.3) 03/04/18 10:45 Iron 24 ug/dL (37-170) L 03/04/18 06:47 TIBC 347 ug/dL (250-450) 03/04/18 06:47 % Saturation 7 (20-55) L 03/04/18 06:47 Total Bilirubin 0.5 mg/dL (0.2-1.3) 03/04/18 10:45 AST 22 U/L (14-36) 03/04/18 10:45 ALT 11 U/L (9-52) 03/04/18 10:45 Alkaline Phosphatase 66 U/L (38-126) 03/04/18 10:45 Total Creatine Kinase 66 U/L (30-135) 03/03/18 11:25 Total Protein 7.4 g/dL (6.3-8.3) 03/04/18 10:45 Albumin 4.0 g/dL (3.5-5.0) 03/04/18 10:45 Globulin 3.4 gm/dL (2.2-3.9) 03/04/18 10:45 Albumin/Globulin Ratio 1.2 (1.0-2.1) 03/04/18 10:45 Urine Color Yellow (YELLOW) 03/04/18 11:16 Urine Clarity Hazy (Clear) 03/04/18 11:16 Urine pH 5.0 (5.0-8.0) 03/04/18 11:16 Ur Specific [place] 1.023 (1.003-1.030) 03/04/18 11:16 Urine Protein Negative mg/dL (NEGATIVE) 03/04/18 11:16 Urine Glucose (UA) Normal mg/dL (Normal) 03/04/18 11:16 Urine Ketones Negative mg/dL (NEGATIVE) 03/04/18 11:16 Urine Blood Negative (NEGATIVE) 03/04/18 11:16 Urine Nitrate Negative (NEGATIVE) 03/04/18 11:16 Urine Bilirubin Negative (NEGATIVE) 03/04/18 11:16 Urine Urobilinogen Normal mg/dL (0.2-1.0) 03/04/18 11:16 Ur Leukocyte Esterase Trace Didi/uL (Negative) 03/04/18 11:16 Urine WBC (Auto) 4 /hpf (0-5) 03/04/18 11:16 Urine RBC (Auto) 2 /hpf (0-3) 03/04/18 11:16 Ur Squamous Epith Cells 21 /hpf (0-5) H 03/04/18 11:16 Urine HCG, Qual Negative (NEGATIVE) 03/03/18 11:25 Urine Opiates Screen Positive (NEGATIVE) H 03/03/18 11:25 Urine Methadone Screen Negative (NEGATIVE) 03/03/18 11:25 Ur Barbiturates Screen Negative (NEGATIVE) 03/03/18 11:25 Ur Phencyclidine Scrn Negative (NEGATIVE) 03/03/18 11:25 Ur Amphetamines Screen Negative (NEGATIVE) 03/03/18 11:25 U Benzodiazepines Scrn Negative (NEGATIVE) 03/03/18 11:25 U Oth Cocaine Metabols Positive (NEGATIVE) H 03/03/18 11:25 U Cannabinoids Screen Positive (NEGATIVE) H 03/03/18 11:25 Alcohol, Quantitative < 10 mg/dl (0-10) 03/03/18 11:25 Attending/Attestation - Attestation I have personally seen and examined this patient.: Yes I have fully participated in the care of the patient.: Yes I have reviewed all pertinent clinical information, including history, physical exam and plan: Yes Notes (Text): 03/04/18 17:54 Patient was seen and examined at 9:45 AM Exam, assessment and plan, and discharge instructions were thoroughly gone over with the resident. Vinh Wolf D.O.
[2018-03-04 07:16] LABS: IRON 24 ug/dL (37-170)
[2018-03-04 07:25] LABS: % IRON SATURATION 7 (20-55); TOTAL IRON BINDING CAPACITY 347 ug/dL (250-450)
[2018-03-04 07:52] VITALS: BP 112/75; RESP 18; TEMP 98.4; O2SAT 99
--- NOTE | 2018-03-04 11:04 | CP.PCM.CON ---
History of Present Illness - History of Present Illness History of Present Illness: 27 yr old woman with first seizure at age 21,semiology of no aura, but secondarily generalized seizure. MIss Karimi has been on keppra ever since, and she takes it sporadically, and ends up having seizures. There is never any aura , no posticital state or postictal weakness. She has never tried any other medications, nor has she been admitted for status epilepticus, and there is no history of video EEG monitoring. On this visit, she had several seizures at home, after trying to completely stop using crack cocaine, marijuana and special K. She also missed her Keppra dose for a day. There was no history of head trauma or MVA. As a child, Miss karimi was FTND, IUTD, with no risk factors such as meningitis or encephalitis, and never had staring spells as a child. PMH/PSH: none FH/SH: no tobacco, drug use as above. Not working, unmarried, no children. All: nkda. ON exam: Normal neurological examination. Ct scan: normal Past Patient History - Infectious Disease Hx of Infectious Diseases: None - Past Medical History & Family History Past Medical History?: Yes - Past Social History Smoking Status: Heavy Smoker > 10 Cigarettes Daily - CARDIAC Hx Cardiac Disorders: No - PULMONARY Hx Respiratory Disorders: No - NEUROLOGICAL Hx Seizures: Yes (NOT TAKING MEDS) - HEENT Hx HEENT Problems: No - RENAL Hx Chronic Kidney Disease: No - ENDOCRINE/METABOLIC Hx Endocrine Disorders: No - HEMATOLOGICAL/ONCOLOGICAL Hx Blood Disorders: No - INTEGUMENTARY Hx Dermatological Problems: No - MUSCULOSKELETAL/RHEUMATOLOGICAL Hx Falls: No - GASTROINTESTINAL Hx Gastrointestinal Disorders: No - GENITOURINARY/GYNECOLOGICAL Hx Genitourinary Disorders: No - PSYCHIATRIC Hx Substance Use: Yes (LAST USED 4 DAYS AGO) - SURGICAL HISTORY Hx Surgeries: No - ANESTHESIA Hx Anesthesia: No Meds Home Medications: Home Medication List Medication Instructions Recorded Confirmed Type levETIRAcetam [Keppra] 500 mg PO BID #60 tab 03/04/18 Rx Allergies/Adverse Reactions: Allergies Allergy/AdvReac Type Severity Reaction Status Date / Time No Known Allergies Allergy Verified 03/03/18 10:09 - Medications Medications: Current Medications Levetiracetam (Keppra) 500 mg PO BID LENKA Last Admin: 03/04/18 09:30 Dose: 500 mg Pneumococcal Polyvalent Vaccine (Pneumovax 23 Vaccine) 0.5 ml IM .ONCE ONE Stop: 03/05/18 09:00 Results - Vital Signs Recent Vital Signs: Last Vital Signs Temp 98.4 F 03/04/18 07:30 Pulse 91 H 03/04/18 07:30 Resp 18 03/04/18 07:30 BP 112/75 03/04/18 07:30 Pulse Ox 99 03/04/18 07:30 - Labs Result Diagrams: 03/03/18 11:25 03/03/18 11:25 Labs: Laboratory Results - last 24 hr 03/03/18 03/03/18 03/03/18 10:23 11:25 11:25 WBC 18.3 H RBC 4.76 Hgb 11.9 Hct 36.8 MCV 77.3 L D MCH 25.0 L MCHC 32.3 L RDW 18.4 H Plt Count 386 MPV 8.6 Neut % (Auto) 90.9 H Lymph % (Auto) 4.7 L [place] % (Auto) 4.3 Eos % (Auto) 0.0 Baso % (Auto) 0.1 Neut # (Auto) 16.7 H Lymph # (Auto) 0.9 L [place] # (Auto) 0.8 Eos # (Auto) 0.0 Baso # (Auto) 0.0 Neutrophils % (Manual) 92 H Band Neutrophils % 1 Lymphocytes % (Manual) 5 L Monocytes % (Manual) 2 Platelet Estimate Normal Anisocytosis (manual) Moderate Ovalocytes Slight Sodium Potassium Chloride Carbon Dioxide Anion Gap BUN Creatinine Est GFR ( Amer) Est GFR (Non-Af Amer) POC Glucose (mg/dL) 97 Random Glucose Calcium Iron TIBC % Saturation Total Bilirubin AST ALT Alkaline Phosphatase Total Creatine Kinase Total Protein Albumin Globulin Albumin/Globulin Ratio Urine Color Yellow Urine Clarity Hazy Urine pH 5.0 Ur Specific [place] 1.019 Urine Protein 1+ H Urine Glucose (UA) Normal Urine Ketones Negative Urine Blood Negative Urine Nitrate Negative Urine Bilirubin Negative Urine Urobilinogen Normal Ur Leukocyte Esterase 1+ H Urine WBC (Auto) 6 H Urine RBC (Auto) 1 Ur Squamous Epith Cells 15 H Urine HCG, Qual Negative Urine Opiates Screen Urine Methadone Screen Ur Barbiturates Screen Ur Phencyclidine Scrn Ur Amphetamines Screen U Benzodiazepines Scrn U Oth Cocaine Metabols U Cannabinoids Screen Alcohol, Quantitative 03/03/18 03/03/18 03/04/18 11:25 11:25 06:47 WBC RBC Hgb Hct MCV MCH MCHC RDW Plt Count MPV Neut % (Auto) Lymph % (Auto) [place] % (Auto) Eos % (Auto) Baso % (Auto) Neut # (Auto) Lymph # (Auto) [place] # (Auto) Eos # (Auto) Baso # (Auto) Neutrophils % (Manual) Band Neutrophils % Lymphocytes % (Manual) Monocytes % (Manual) Platelet Estimate Anisocytosis (manual) Ovalocytes Sodium 141 Potassium 4.8 Chloride 103 Carbon Dioxide 18 L Anion Gap 24 H BUN 11 Creatinine 0.7 Est GFR ( Amer) > 60 Est GFR (Non-Af Amer) > 60 POC Glucose (mg/dL) Random Glucose 86 Calcium 8.9 Iron 24 L TIBC 347 % Saturation 7 L Total Bilirubin 0.3 AST 40 H ALT 11 Alkaline Phosphatase 68 Total Creatine Kinase 66 Total Protein 7.3 Albumin 4.1 Globulin 3.2 Albumin/Globulin Ratio 1.3 Urine Color Urine Clarity Urine pH Ur Specific [place] Urine Protein Urine Glucose (UA) Urine Ketones Urine Blood Urine Nitrate Urine Bilirubin Urine Urobilinogen Ur Leukocyte Esterase Urine WBC (Auto) Urine RBC (Auto) Ur Squamous Epith Cells Urine HCG, Qual Urine Opiates Screen Positive H Urine Methadone Screen Negative Ur Barbiturates Screen Negative Ur Phencyclidine Scrn Negative Ur Amphetamines Screen Negative U Benzodiazepines Scrn Negative U Oth Cocaine Metabols Positive H U Cannabinoids Screen Positive H Alcohol, Quantitative < 10 - Imaging and Cardiology CT scan - head Status: Image reviewed by me, Report reviewed by me Assessment & Plan - Assessment and Plan (Free Text) Assessment: 27 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 When she takes her keppra, she does not have seizures, but has a hard time remembering to take her medications. Therefore we will change her to once a day dosing. In addition, i have counselled her at length about her drug use. EEG, CT scan are normal. Plan: 1. Change keppra to 1000 mg Er. 2. RTC to clinic one month 3. No driving 6 months. Thank you for this interesting consult Dr. Rajeev MD ,DPN
[2018-03-04 11:16] LABS: BASO % 0.1 % (0.0-2.0); EOS % 0.4 % (0.0-4.0); HEMOGLOBIN 11.6 g/dL (11.0-16.0); LYMPH % 22.2 % (20.0-40.0); MEAN CELL VOLUME 76.3 fL (81.0-99.0); MEAN CORPUSCULAR HEMOGLOBIN 25.2 pg (27.0-31.0); MEAN PLATELET VOLUME 8.2 fL (7.2-11.7); MONO # 0.6 K/uL (0.0-0.8); MONO % 6.7 % (0.0-10.0); NEUT # 6.2 K/uL (1.8-7.0); NEUT % 70.6 % (50.0-75.0); RBC 4.59 Mil/uL (3.80-5.20); RED CELL DISTRIBUTION WIDTH 18.3 % (11.5-14.5)
[2018-03-04 11:17] LABS: ALB/GLOB RATIO 1.2 (1.0-2.1); ALT/SGPT 11 U/L (9-52); AST/SGOT 22 U/L (14-36); BLOOD UREA NITROGEN 10 mg/dL (7-17); CALCIUM 8.8 mg/dl (8.6-10.4); GFR AFRICAN-AMERICAN > 60; GFR NON-AFRICAN AMERICAN > 60
[2018-03-04 11:20] LABS: WHITE BLOOD COUNT 8.8 K/uL (4.8-10.8)
[2018-03-04 12:01] LABS: SQUAMOUS EPITHIAL 21 /hpf (0-5); URINE BILIRUBIN NEGATIVE (NEGATIVE); URINE BLOOD NEGATIVE (NEGATIVE); URINE CLARITY Hazy (Clear); URINE COLOR Yellow (YELLOW); URINE GLUCOSE (UA) NORMAL (Normal); URINE LEUKOCYTE ESTERASE TRACE Leu/uL (Negative); URINE PROTEIN NEGATIVE (NEGATIVE); URINE UROBILINOGEN NORMAL mg/dL (0.2-1.0)
[2018-03-04 12:14] VITALS: PULSE 93
--- NOTE | 2018-03-04 13:45 | PCM.PSYCH ---
Initial Psychiatric Evaluation - Initial Psychiatric Evaluation Type of Admission: Voluntary Legal Status: Capacity History of Present Illness and Precipitating Events: Cleared for d/c Full note to follow Past Psychiatric History - Past Psychiatric History Pertinent Medical Hx (Current Medical&Sleep Prob, Allergies): Allergies Allergy/AdvReac Type Severity Reaction Status Date / Time No Known Allergies Allergy Verified 03/03/18 10:09 levETIRAcetam [Keppra] 500 mg PO BID #60 tab 03/04/18
--- NOTE | 2018-03-04 19:02 | EEG ---
DATE: Technical Information: Electrodes were placed according to the 10-20 [employer] electrode system by electronic technologist. Total of 23 electrodes (21 EEG and 2 EKG) were placed. EEG activity was digitally recorded referentially to P1/P2 or A1/A2 electrodes. Continuous monitoring with EEG was performed using digital analysis for spike detection. The [employer] spike and seizure detection algorithms were used for digital EEG analysis throughout the monitoring period to screen the EEG in real-time and mitesh the data file with pointers to electrographic seizures and interictal discharges. EEG was screened for electrographic seizures and interictal discharges by a technologist. Physician, epileptologist reviewed detections as well as extensive random samples and whole EEG study in detail. Digital EEG Analysis: Was carried out including FFT (Fast Fourier Transform), R2D2 (Rhythmicity Run Detection and Display), Relative Asymmetry Spectrogram, and voltage plot by the [employer] Software. The qualitative EEG analysis and the voltage plot mapping were used for detection of foci of paroxysmal and abnormal electrical cortical activity. General Description: Background Rhythm: There is a well-formed, 8-10 Hz posterior dominant rhythm that is reactive, symmetric, and attenuates with eye opening. There was a normal amount of frontal beta noted bilaterally. There is no sleep recorded. Activation Procedures: Photic stimulation: There is no driving noted. Hyperventilation: There is slowing noted that is self-remitted. Abnormal Activity: There are no focal epileptiform discharges noted. No clinical or subclinical seizures noted. Impression: This is a normal awake and drowsy EEG. Clinical correlation is required. Delicia Boo MD
[2018-03-05] MEDS ORDERED: Pneumococcal 23-Valent Vaccine IM ONE (08:59)
== END 2018-03-04 13:21 | disposition home or self-care (01) ==
LOC: C.ER 09:57 → C.9E 14:35 → C.6T 15:13
PROVIDERS: ADMIT Family Medicine; ATTEND Family Medicine
DX: G40.409 Other generalized epilepsy and epileptic syndromes, not intractable, without status epilepticus (principal); F14.90 Cocaine use, unspecified, uncomplicated; F12.90 Cannabis use, unspecified, uncomplicated; S01.511A Laceration without foreign body of lip, initial encounter; W19.XXXA Unspecified fall, initial encounter; F17.210 Nicotine dependence, cigarettes, uncomplicated; Z91.14 Patient's other noncompliance with medication regimen; Z79.899 Other long term (current) drug therapy
CPT/HCPCS: 36415; 70450; 70480; 71046; 80053; 80320; 80324; 80345; 80346; 80349; 80353; 80358; 80361; 81001; 82550; 82948; 83540; 83550; 83735; 83992; 84100; 84703; 85025; 87389; 87536; 93005; 95812; 96360; 96365; 99285; G0378; J1953; J7040

== ENCOUNTER 2018-06-19 12:37 | Emergency (ER) | payer SELFPAY ==
[2018-06-19 12:37] VITALS: BMI 27.4
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
[2018-06-19 13:02] VITALS: BP 127/81; PULSE 110; RESP 16; TEMP 98; O2SAT 98
--- NOTE | 2018-06-19 13:26 | RAD ---
Date of service: 06/19/2018 PROCEDURE: Right Foot Radiographs. HISTORY: injury COMPARISON: None. FINDINGS: BONES: Normal. No fracture. JOINTS: Normal. SOFT TISSUES: Normal. OTHER FINDINGS: None. IMPRESSION: Normal right foot radiographs.
--- NOTE | 2018-06-19 13:28 | RAD ---
Date of service: 06/19/2018 PROCEDURE: Right Ankle Radiographs. HISTORY: injury COMPARISON: None FINDINGS: BONES: Normal. No fracture. JOINTS: Normal. No osteoarthritis. Ankle mortise maintained. Talar dome intact SOFT TISSUES: Lateral soft tissue swelling. This may indicate ligamentous injury. OTHER FINDINGS: None. IMPRESSION: No fracture/ dislocation. Lateral soft tissue swelling noted.
== END 2018-06-19 14:07 | disposition home or self-care (01) ==
LOC: C.ER 12:37
DX: S93.401A Sprain of unspecified ligament of right ankle, initial encounter (principal); X50.9XXA Other and unspecified overexertion or strenuous movements or postures, initial encounter

== ENCOUNTER 2018-07-09 09:04 | Emergency (ER) | payer OTHER ==
[2018-07-09 09:11] VITALS: BMI 22.3
[2018-07-09 09:16] VITALS: O2SAT 98
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
[2018-07-09 10:30] VITALS: BP 114/72; PULSE 91; RESP 18; TEMP 99.1
--- NOTE | 2018-07-09 13:30 | RAD ---
Date of service: 07/09/2018 PROCEDURE: Right Ankle Radiographs. HISTORY: s/p fall COMPARISON: 06/19/2018 FINDINGS: BONES: Normal. No fracture. JOINTS: Normal. No osteoarthritis. Ankle mortise maintained. Talar dome intact SOFT TISSUES: The prior lateral perimalleolar soft tissue swelling is now less. No interval soft tissue swelling appreciated OTHER FINDINGS: None. IMPRESSION: Normal right ankle radiographs.
--- NOTE | 2018-07-09 15:45 | RAD ---
Date of service: 07/09/2018 PROCEDURE: Right Foot Radiographs. HISTORY: s/p fall COMPARISON: None. FINDINGS: BONES: . No fracture. JOINTS: Normal. SOFT TISSUES: Normal. OTHER FINDINGS: None. IMPRESSION: Normal right foot radiographs.
== END 2018-07-09 10:35 | disposition home or self-care (01) ==
LOC: C.ER 09:04
DX: S96.911A Strain of unspecified muscle and tendon at ankle and foot level, right foot, initial encounter (principal); W01.0XXA Fall on same level from slipping, tripping and stumbling without subsequent striking against object, initial encounter; Z72.0 Tobacco use

== ENCOUNTER 2018-11-10 11:15 | Emergency (ER) | payer MEDICAID ==
[2018-11-10 11:15] VITALS: BMI 22.3
[2018-11-10 11:22] VITALS: O2SAT 94
[2018-11-10 11:56] LABS: BASO % 0.2 % (0.0-2.0); LYMPH % 7.6 % (20.0-40.0); MEAN CORPUSCULAR HEMOGLOBIN 26.8 pg (27.0-31.0); MEAN PLATELET VOLUME 8.6 fL (7.2-11.7); MONO # 0.5 K/uL (0.0-0.8); MONO % 3.5 % (0.0-10.0); NEUT # 12.2 K/uL (1.8-7.0); NEUT % 88.7 % (50.0-75.0); PLATELET COUNT 383 K/uL (130-400); RBC 5.22 Mil/uL (3.80-5.20); RED CELL DISTRIBUTION WIDTH 15.8 % (11.5-14.5)
[2018-11-10 11:58] LABS: MEAN CELL VOLUME 83.8 fL (81.0-99.0); WHITE BLOOD COUNT 13.8 K/uL (4.8-10.8)
[2018-11-10 12:09] LABS: ALB/GLOB RATIO 1.5 (1.0-2.1); ALBUMIN 4.6 g/dL (3.5-5.0); ALT/SGPT 10 U/L (9-52); AST/SGOT 19 U/L (14-36); BLOOD UREA NITROGEN 11 mg/dL (7-17); CALCIUM 9.4 mg/dl (8.6-10.4); GFR NON-AFRICAN AMERICAN > 60
[2018-11-10 12:17] LABS: BASOPHIL 1 % (0-2); LYMPHOCYTE 8 % (20-40); MONOCYTE 4 % (0-10); NEUTROPHIL 87 % (50-75); PLATELET ESTIMATE NORMAL (NORMAL); TOTAL CELLS COUNTED 100
--- NOTE | 2018-11-10 12:35 | C.PDOC ---
History Of Present Illness 28 y/o female with history of Seizures presents to ED for seizure [employer]. As per boyfriend at bedside patient is non compliant with Keppra. At ED patient is pos ictal and aggressive with staff, denies fever or any other complaints at this time. Time Seen by Provider: 11/10/18 11:31 Chief Complaint (Nursing): Seizure History Per: Patient History/Exam Limitations: no limitations Recent Seizure Activity Began: Just Before Arrival Number Of Seizures: Multiple Past Medical History Reviewed: Historical Data, Nursing Documentation, Vital Signs Vital Signs: Last Vital Signs Temp Pulse 134 H 11/10/18 11:19 Resp 22 11/10/18 11:19 BP 120/74 11/10/18 11:19 Pulse Ox 94 L 11/10/18 11:19 - Medical History PMH: Seizures (NOT TAKING MEDS) Surgical History: No Surg Hx - [facility] Procedures APPLICATION OF SPLINT (02/11/15) Family History: States: No Known Family Hx - Social History Hx Tobacco Use: Yes Hx Alcohol Use: Yes Hx Substance Use: Yes (LAST USED 4 DAYS AGO) - Immunization History Hx Tetanus Toxoid Vaccination: No Hx Influenza Vaccination: No Hx Pneumococcal Vaccination: No Review Of Systems Constitutional: Negative for: Fever, Chills Gastrointestinal: Negative for: Nausea, Vomiting Neurological: Positive for: Seizures. Negative for: Change in Speech, Altered Mental Status, Headache Physical Exam - Physical Exam Appears: Non-toxic, No Acute Distress, Other (Postictal) Skin: Warm, Dry, No Rash Head: Atraumatic, Normacephalic Eye(s): bilateral: Normal Inspection Oral Mucosa: Moist Neck: Normal ROM, Supple Cardiovascular: Rhythm Regular Respiratory: Normal Breath Sounds, No Rales, No Rhonchi, No Wheezing Gastrointestinal/Abdominal: Soft, No Tenderness, No Guarding, No Rebound Neurological/Psych: Oriented x3, Normal Speech, Normal Cognition ED Course And Treatment - Laboratory Results Result Diagrams: 11/10/18 11:50 11/10/18 11:50 O2 Sat by Pulse Oximetry: 94 (RA) Progress Note: On re evaluation patient is awake and agrees with plan of dischar ge, instructed compliance with Keppra and follow up with PMD in 2 days. Disposition - Disposition Referrals: [facility] [Outside] [facility] [Outside] Disposition: HOME/ ROUTINE Disposition Time: 14:30 Condition: IMPROVED Additional Instructions: JUAN JOSÉ ADAMS, thank you for letting us take care of you today. Your provider was Justus Goodwin DO and you were treated for SEIZURE. The emergency medical ca re you received today was directed at your acute symptoms. If you were prescribed any medication, please fill it and take as directed. It may take several days for your symptoms to resolve. Return to the Emergency Department if your symptoms worsen, do not improve, or if you have any other problems. Please contact your doctor or call one of the physicians/clinics you have been referred to that are listed on the Patient Visit Information form that is included in your discharge packet. Bring any paperwork you were given at discharge with you along with any medications you are taking to your follow up visit. Our treatment cannot replace ongoing medical care by a primary care provider outside of the emergency department. Thank you for allowing the [facility] team to be part of your care today. YOU MUST TAKE YOUR MEDICATION. IT DOES NOT WORK IF YOU DO NOT TAKE IT. Follow up with the clinic this week for follow up and referral to a specialist. Prescriptions: levETIRAcetam [Keppra] 500 mg PO BID #28 tab Instructions: Seizures, Adult (DC) Forms: [employer] (Irish) - Clinical Impression Clinical Impression: Noncompliance with medication regimen, Tonic-clonic seizure - Scribe Statement The provider has reviewed the documentation as recorded by the Nikunjibigor Calhoun All medical record entries made by the Scribe were at my direction and personally dictated by me. I have reviewed the chart and agree that the record accurately reflects my personal performance of the history, physical exam, medical decision making, and the department course for this patient. I have also personally directed, reviewed, and agree with the discharge instructions and disposition.
[2018-11-10 14:24] VITALS: BP 101/66; PULSE 104; RESP 21
== END 2018-11-10 14:58 | disposition home or self-care (01) ==
LOC: C.ER 11:15
DX: G40.409 Other generalized epilepsy and epileptic syndromes, not intractable, without status epilepticus (principal); Z91.14 Patient's other noncompliance with medication regimen; Z72.0 Tobacco use
CPT/HCPCS: 80053; 82948; 84702; 85025; 96365; 96375; 99285; J1953; J2060

== ENCOUNTER 2019-03-20 21:14 | Emergency (ER) | payer SELFPAY ==
[2019-03-20 21:15] VITALS: BMI 22.3
[2019-03-20 21:25] VITALS: TEMP 98.4
[2019-03-20] MEDS ORDERED: levETIRAcetam 500 MG in Sodium Chloride 0.9% 100 ML IVPB STA (21:29)
[2019-03-20] MEDS ORDERED: Sodium Chloride 0.9% 1,000 ML IV ONE ×2 (21:29→22:44)
[2019-03-20 22:09] LABS: BASO % 0.1 % (0.0-2.0); HEMOGLOBIN 14.4 g/dL (11.0-16.0); LYMPH # 1.7 K/uL (1.0-4.3); LYMPH % 10.4 % (20.0-40.0); MEAN CELL VOLUME 84.7 fL (81.0-99.0); MEAN CORPUSCULAR HEMOGLOBIN 28.8 pg (27.0-31.0); MEAN PLATELET VOLUME 8.7 fL (7.2-11.7); MONO # 1.6 K/uL (0.0-0.8); MONO % 9.3 % (0.0-10.0); NEUT # 13.4 K/uL (1.8-7.0); NEUT % 80.2 % (50.0-75.0); RBC 5.01 Mil/uL (3.80-5.20); RED CELL DISTRIBUTION WIDTH 13.9 % (11.5-14.5); WHITE BLOOD COUNT 16.7 K/uL (4.8-10.8)
[2019-03-20 22:23] LABS: ALB/GLOB RATIO 1.7 (1.0-2.1); ALBUMIN 4.6 g/dL (3.5-5.0); ALT/SGPT 15 U/L (9-52); AST/SGOT 21 U/L (14-36); BLOOD UREA NITROGEN 15 mg/dL (7-17); CALCIUM 9.9 mg/dl (8.6-10.4); GFR NON-AFRICAN AMERICAN > 60
--- NOTE | 2019-03-20 22:26 | C.PDOC ---
Time Seen by Provider: 03/20/19 21:16 Chief Complaint (Nursing): Seizure Past Medical History Vital Signs: Last Vital Signs Temp 98.4 F 03/20/19 21:19 Pulse 100 H 03/20/19 21:19 Resp 14 03/20/19 21:19 BP 97/57 L 03/20/19 21:19 Pulse Ox 97 03/20/19 21:19 - Medical History PMH: Seizures (NOT TAKING MEDS) Denies: Chronic Kidney Disease - [facility] Procedures APPLICATION OF SPLINT (02/11/15) Family History: States: Unknown Family Hx - Social History Hx Tobacco Use: Yes Hx Alcohol Use: Yes Hx Substance Use: Yes (LAST USED 4 DAYS AGO) - Immunization History Hx Tetanus Toxoid Vaccination: No Hx Influenza Vaccination: No Hx Pneumococcal Vaccination: No ED Course And Treatment - Laboratory Results Result Diagrams: 03/20/19 22:06 O2 Sat by Pulse Oximetry: 97 Disposition - Disposition
--- NOTE | 2019-03-20 22:27 | C.PDOC ---
History Of Present Illness 28 y/o female brought in by ambulance for several seizures today that were witnessed by her boyfriend. Patient has PMHx of seizure disorder and her boyfriend admits that is often not compliant with Keppra. Patient is currently postictal, history obtained from boyfriend. Time Seen by Provider: 03/20/19 21:16 Chief Complaint (Nursing): Seizure History Per: Other (Boyfriend) History/Exam Limitations: clinical condition Number Of Seizures: Multiple Length Of Seizures (Duration): Seconds Post-ictal Period: Yes Past Medical History Reviewed: Historical Data, Nursing Documentation, Vital Signs Vital Signs: Last Vital Signs Temp 98.4 F 03/20/19 21:19 Pulse 100 H 03/20/19 21:19 Resp 14 03/20/19 21:19 BP 97/57 L 03/20/19 21:19 Pulse Ox 97 03/20/19 21:19 - Medical History PMH: Seizures (NOT TAKING MEDS) - [facility] Procedures APPLICATION OF SPLINT (02/11/15) Family History: States: No Known Family Hx - Social History Hx Tobacco Use: Yes Hx Alcohol Use: Yes Hx Substance Use: Yes (LAST USED 4 DAYS AGO) - Immunization History Hx Tetanus Toxoid Vaccination: No Hx Influenza Vaccination: No Hx Pneumococcal Vaccination: No Review Of Systems Constitutional: Negative for: Fever, Chills Cardiovascular: Negative for: Chest Pain, Palpitations Respiratory: Negative for: Shortness of Breath Gastrointestinal: Negative for: Nausea, Vomiting, Abdominal Pain Musculoskeletal: Negative for: Neck Pain Neurological: Positive for: Seizures. Negative for: Weakness, Numbness, Headache, Dizziness Physical Exam - Physical Exam Appears: Well, Non-toxic, No Acute Distress, Confused (mild), Other (Awake and alert) Skin: Warm, Dry Head: Atraumatic, Normacephalic Eye(s): bilateral: Normal Inspection Oral Mucosa: Moist Tongue: Normal Appearing, No Laceration Neck: No Midline Cervical Tenderness, No Paracervical Tenderness, No Step Off Deformity, Supple Cardiovascular: Rhythm Regular (tachycardic), No Murmur Respiratory: Normal Breath Sounds, No Rales, No Rhonchi, No Wheezing Gastrointestinal/Abdominal: Normal Exam, Bowel Sounds, Soft, No Tenderness Extremity: Normal ROM, No Deformity Extremity: Bilateral: Atraumatic, Normal Color And Temperature, Normal ROM Neurological/Psych: Other (Able to follow commands, moving all extremities s pontaneously) ED Course And Treatment - Laboratory Results Result Diagrams: 03/20/19 22:06 03/20/19 22:06 Lab Results: Total Bilirubin 0.4 mg/dL (0.2-1.3) 03/20/19 22:06 AST 21 U/L (14-36) 03/20/19 22:06 ALT 15 U/L (9-52) 03/20/19 22:06 Alkaline Phosphatase 93 U/L (38-126) 03/20/19 22:06 Total Protein 7.3 g/dL (6.3-8.3) 03/20/19 22:06 Albumin 4.6 g/dL (3.5-5.0) 03/20/19 22:06 Globulin 2.7 gm/dL (2.2-3.9) 03/20/19 22:06 Albumin/Globulin Ratio 1.7 (1.0-2.1) 03/20/19 22:06 O2 Sat by Pulse Oximetry: 97 (RA) Pulse Ox Interpretation: Normal Progress Note: Bloodwork, Upreg, UA ordered and reviewed. Patient given IV Keppra, IV NS bolus. Reevaluation Time: 00:00 Reassessment Condition: Improved (Patient reassessed, is resting comfortably, is AAOx3. She has not had repeat seizures in the ED. Patient given Rx for Keppra and was instructed to follow up with neurology within 1 week. She understands she should return to ED if symptoms worsen.) Disposition Counseled Patient/Family Regarding: Diagnosis, Need For Followup - Disposition Referrals: [facility] [Outside] Ren Sandoval MD [Staff Provider] - Disposition: HOME/ ROUTINE Disposition Time: 00:00 Condition: STABLE Additional Instructions: FOLLOW UP WITH NEUROLOGY WITHIN 1 WEEK TAKE YOUR ANTISEIZURE MEDICATIONS DIRECTED! RETURN TO ER IF SYMPTOMS WORSEN Prescriptions: levETIRAcetam [Keppra] 500 mg PO BID #60 tab Instructions: Seizures, Adult (DC) Forms: [employer] (Singaporean) Print Language: KINYARWANDA - Clinical Impression Clinical Impression: Seizure disorder, Noncompliance with medication regimen, Tonic-clonic seizure - Scribe Statement The provider has reviewed the documentation as recorded by the Scribe Keya Daus Provider Attestation: All medical record entries made by the Scribe were at my direction and p ersonally dictated by me. I have reviewed the chart and agree that the record accurately reflects my personal performance of the history, physical exam, medical decision making, and the department course for this patient. I have also personally directed, reviewed, and agree with the discharge instructions and disposition.
[2019-03-20 22:53] LABS: HCG,QUALITATIVE URINE NEGATIVE (NEGATIVE)
[2019-03-20 23:08] LABS: GRANULAR CAST 35 /lpf (0-1); SQUAMOUS EPITHIAL 1 /hpf (0-5); URINE BILIRUBIN NEGATIVE (NEGATIVE); URINE BLOOD 1+ (NEGATIVE); URINE CLARITY Hazy (Clear); URINE COLOR Yellow (YELLOW); URINE GLUCOSE (UA) NORMAL (Normal); URINE LEUKOCYTE ESTERASE 2+ Leu/uL (Negative); URINE PROTEIN 2+ mg/dL (NEGATIVE); URINE UROBILINOGEN NORMAL mg/dL (0.2-1.0)
[2019-03-20 23:10] LABS: BARBITURATES, UR NEGATIVE (NEGATIVE); BENZODIAZEPINES, UR NEGATIVE (NEGATIVE); OPIATES, UR NEGATIVE (NEGATIVE); PHENCYCLIDINE, UR NEGATIVE (NEGATIVE)
[2019-03-21 00:18] VITALS: BP 97/55; PULSE 108; RESP 24
[2019-03-23 14:17] VITALS: O2SAT 97
== END 2019-03-21 01:06 | disposition home or self-care (01) ==
LOC: C.ER 21:14
DX: G40.409 Other generalized epilepsy and epileptic syndromes, not intractable, without status epilepticus (principal); Z91.14 Patient's other noncompliance with medication regimen
CPT/HCPCS: 36415; 80053; 81001; 82550; 82948; 84703; 85025; 96374; 99285; G0480; J1953; J7030